=== PATIENT | male | born 1940 | race African-American/Black ===

== ENCOUNTER 2017-12-11 22:10 | Inpatient (IN) ==
[2017-12-11] MEDS ORDERED: methylPREDNISolone SOD SUC 125 MG/2 ML VIAL IV STA (22:53)
[2017-12-11] MEDS ORDERED: ALBUTEROL/IPRATROPIUM 3 ML NEB RESP TX STA (22:53)
[2017-12-11] MEDS ORDERED: methylPREDNISolone SOD SUC 125 MG/2 ML VIAL ONE (23:21)
[2017-12-11 23:49] LABS: Basophils # 0.1 10*3/uL (0.0-0.2); Basophils % 0.5 % (0.0-0.8); Eosinophils # 0.1 10*3/uL (0.0-0.87); Eosinophils % 0.9 % (0.00-10.9); Hematocrit 34.6 VOL% (42.0-52.0); Hemoglobin 11.4 GM/DL (14.0-18.0); Immature Granulocytes % 0.5 %; Immature Granulocytes Absolute 0.05 #; Lymphocytes # 1.7 10*3/uL (1.4-4.0); Lymphocytes % 18.5 % (21.2-54.2); Mean Corpuscular HGB Conc 32.9 GM/DL (32-36); Mean Corpuscular Hemoglobin 28 PG (27-34); Mean Corpuscular Volume 86.1 FL (87-102); Mean Platelet Volume 10.1 FL (9.6-12.0); Monocytes # 0.4 10*3/uL (0.11-0.8); Monocytes % 4.8 % (1.7-12.7); Neutrophils # 6.8 10*3/uL (1.4-7.4); Neutrophils % 74.8 % (38.7-73.9); Platelet Count 195 T/CUMM (130-400); Red Blood Count 4.02 MC/CUMM (3.8-5.5); Red Cell Distribution Width 14.6 % (9.3-17.3); White Blood Count 9.1 T/CUMM (4-12)
[2017-12-12 00:46] LABS: Alanine Aminotransferase 48 U/L (16-61); Albumin 3.4 G/DL (3.4-5.0); Alkaline Phosphatase 133 U/L (45-117); Aspartate Amino Transferase 62 U/L (0-37); Blood Urea Nitrogen 18 MG/DL (7-18); Calcium 8.1 MG/DL (8.5-10.1); Glucose 137 MG/DL (74-106); Magnesium 1.9 MG/DL (1.8-2.4); Osmolality,Calculated 286.1 MOS/KG (273-304); Potassium 4.2 MMOL/L (3.5-5.1); Sodium 142 MMOL/L (136-145); Total Protein 7.2 G/DL (6.4-8.3)
[2017-12-12 00:47] LABS: Troponin I Only 0.316 NG/ML (0.00-0.045)
[2017-12-12] MEDS ORDERED: FUROSEMIDE 20 MG/2 ML VIAL IV STA (01:24)
[2017-12-12] MEDS ORDERED: FUROSEMIDE 20 MG/2 ML VIAL ONE (02:19)
[2017-12-12] MEDS ORDERED: MAGNESIUM SULF RIDER 2 GM in PREMIX 1 EACH IV PRN (05:12)
[2017-12-12] MEDS ORDERED: hydrALAZINE 20 MG/1 ML VIAL IV PRN (05:12)
[2017-12-12] MEDS ORDERED: ONDANSETRON 4 MG/2 ML VIAL IV PRN (05:12)
[2017-12-12] MEDS ORDERED: MAGNESIUM SULF RIDER 4 GM in PREMIX 1 EACH IV PRN (05:12)
[2017-12-12] MEDS ORDERED: LEVOFLOXACIN INJ 500 MG in PREMIX 1 EACH IV ONE (05:30)
[2017-12-12] MEDS: ALBUTEROL/IPRATROPIUM 3 ML NEB RESP TX SCH ×3 (07:55→19:24)
[2017-12-12 08:05] LABS: Ferritin 437.4 ng/ml (26-388)
[2017-12-12 08:21] LABS: % Iron Saturation 13.5 % (18-50)
[2017-12-12] MEDS ORDERED: POTASSIUM CHLORIDE 20 MEQ TABLET PO SCH (09:00)
[2017-12-12] MEDS: FUROSEMIDE 40 MG/4 ML VIAL IV SCH ×2 (09:18→17:16)
[2017-12-12] MEDS: PANTOPRAZOLE 40 MG TABLET PO SCH (09:20)
[2017-12-12] MEDS ORDERED: ZALEPLON 5 MG CAPSULE PO PRN (13:49)
[2017-12-12] MEDS ORDERED: guaiFENesin/DM ER 600-30 MG TABLET PO PRN (13:49)
[2017-12-12] MEDS ORDERED: BISACODYL 5 MG TABLET PO PRN (13:49)
[2017-12-12] MEDS: ASPIRIN EC 81 MG TABLET PO SCH (13:59)
[2017-12-12] MEDS: ENOXAPARIN 40 MG/0.4 ML SYRINGE SUBCUT SCH (14:00)
[2017-12-12 14:42] LABS: Apearance,Urine CLEAR (Clear); Bilirubin,Urine Negative (Negative); Blood, Urine Negative (Negative); Glucose,Urine (UA) Negative (Negative); Ketones,Urine Negative (Negative); Nitrite,Urine Negative (Negative); Protein,Urine Negative; RBC,Urine <1 /HPF (0-4); Squamous Epithelial Cell,Urine Occasional /HPF (0-10); Urine Color Straw (Yellow); Urine Specific Gravity 1.006 (1.001-1.035); Urine Urobilinogen < 2.0 EU/DL (0.2-1.0); WBC,Urine <1 /HPF (0-6)
[2017-12-12] MEDS ORDERED: TERAZOSIN 5 MG CAPSULE PO SCH (21:00)
[2017-12-12] MEDS ORDERED: ATORVASTATIN 40 MG TABLET PO SCH (21:00)
[2017-12-13] MEDS: ALBUTEROL/IPRATROPIUM 3 ML NEB RESP TX SCH ×3 (00:10→12:45)
[2017-12-13 05:36] LABS: Calcium 8.3 MG/DL (8.5-10.1); Magnesium 2.1 MG/DL (1.8-2.4); Osmolality,Calculated 288.3 MOS/KG (273-304); Potassium 3.9 MMOL/L (3.5-5.1)
[2017-12-13 06:06] LABS: Risk Ratio 5.88; VLDL CHOLESTEROL 22.4 MG/DL
[2017-12-13 06:51] LABS: Hemoglobin 9.7 GM/DL (14.0-18.0); Immature Granulocytes % 0.4 %; Immature Granulocytes Absolute 0.03 #; Lymphocytes # 1.4 10*3/uL (1.4-4.0); Lymphocytes % 17.1 % (21.2-54.2); Mean Corpuscular HGB Conc 33.4 GM/DL (32-36); Mean Corpuscular Hemoglobin 28 PG (27-34); Mean Platelet Volume 10.7 FL (9.6-12.0); Monocytes # 0.6 10*3/uL (0.11-0.8); Monocytes % 7.7 % (1.7-12.7); Neutrophils % 74.8 % (38.7-73.9); Platelet Count 202 T/CUMM (130-400); Red Blood Count 3.41 MC/CUMM (3.8-5.5); Red Cell Distribution Width 14.6 % (9.3-17.3); White Blood Count 8.1 T/CUMM (4-12)
[2017-12-13] MEDS ORDERED: POTASSIUM CHLORIDE 20 MEQ TABLET PO SCH (09:00)
[2017-12-13] MEDS ORDERED: METOPROLOL TARTRATE 25 MG TABLET PO SCH (09:00)
[2017-12-13 09:18] LABS: Troponin I Only 0.344 NG/ML (0.00-0.045)
[2017-12-13 09:32] LABS: Albumin (SPE) 3.8 G/DL (3.2-5.3); Albumin (SPE) Rel % 53.4 %; Alpha 1 (SPE) 0.3 G/DL (0.1-0.4); Alpha 2 (SPE) 0.8 G/DL (0.4-1.0); Alpha 2 (SPE) Rel % 11.5 %; Beta (SPE) 0.9 G/DL (0.5-1.1); Beta (SPE) Rel % 12.3 %; Gamma (SPE) 1.3 G/DL (0.7-1.7); Gamma (SPE) Rel % 18.8 %; Total Protein (Chem) 7.1 G/DL (6.4-8.3)
[2017-12-13] MEDS: FUROSEMIDE 40 MG/4 ML VIAL IV SCH (10:30)
[2017-12-13] MEDS: PANTOPRAZOLE 40 MG TABLET PO SCH (11:05)
[2017-12-13] MEDS: ASPIRIN EC 81 MG TABLET PO SCH (11:05)
[2017-12-13] MEDS: ENOXAPARIN 40 MG/0.4 ML SYRINGE SUBCUT SCH (11:35)
[2017-12-13 14:56] VITALS: BP 180/76
[2017-12-14] MEDS ORDERED: METOPROLOL SUCCINATE XL 25 MG TABLET PO SCH (09:00)
== END 2017-12-13 19:23 | disposition home health service (06) | DRG 308 ==
LOC: N.ED 22:10 → N.EDINP 12-12 01:50 → SUATTDRO 12-12 01:50 → N.CC 12-12 03:02
PROVIDERS: ADMIT Internal Medicine Cardiovascular Disease; ATTEND Internal Medicine Cardiovascular Disease

== ENCOUNTER 2018-09-27 10:27 | Inpatient (IN) ==
[2018-09-27] MEDS ORDERED: ONDANSETRON 4 MG/2 ML VIAL IV PRN (12:28)
[2018-09-27] MEDS ORDERED: GLUCAGON 1 MG VIAL IM PRN (12:28)
[2018-09-27] MEDS ORDERED: DEXTROSE 50% 25 GM/50 ML VIAL IV PRN (12:28)
[2018-09-27] MEDS ORDERED: ACETAMINOPHEN 325 MG TABLET PO PRN (12:28)
[2018-09-27] MEDS ORDERED: ALBUTEROL 2.5 MG/3 ML NEB RESP TX PRN (12:30)
[2018-09-27 13:17] LABS: Basophils % 0.3 % (0.0-0.8); Hematocrit 36.2 VOL% (42.0-52.0); Hemoglobin 11.7 GM/DL (14.0-18.0); Immature Granulocytes % 0.4 %; Immature Granulocytes Absolute 0.03 #; Lymphocytes # 1.7 10*3/uL (1.4-4.0); Lymphocytes % 21.6 % (21.2-54.2); Mean Corpuscular HGB Conc 32.3 GM/DL (32-36); Mean Corpuscular Hemoglobin 27 PG (27-34); Mean Corpuscular Volume 84.6 FL (87-102); Mean Platelet Volume 9.7 FL (9.6-12.0); Monocytes # 0.6 10*3/uL (0.11-0.8); Monocytes % 7.2 % (1.7-12.7); Neutrophils # 5.5 10*3/uL (1.4-7.4); Neutrophils % 70.5 % (38.7-73.9); Platelet Count 193 T/CUMM (130-400); Red Blood Count 4.28 MC/CUMM (3.8-5.5); Red Cell Distribution Width 14.9 % (9.3-17.3); White Blood Count 7.8 T/CUMM (4-12)
[2018-09-27 13:36] LABS: Albumin 3.3 G/DL (3.4-5.0); Bilirubin,Total 0.5 MG/DL (0.2-1.0); Calcium 8.8 MG/DL (8.5-10.1); Osmolality,Calculated 285.1 MOS/KG (273-304); Potassium 3.8 MMOL/L (3.5-5.1); Total Protein 8.6 G/DL (6.4-8.3)
[2018-09-27] MEDS: LEVOFLOXACIN INJ 750 MG in PREMIX 1 EACH IV SCH (14:24)
[2018-09-27] MEDS: methylPREDNISolone SOD SUC 40 MG/1 ML VIAL IV SCH (14:28)
[2018-09-27] MEDS: ALBUTEROL/IPRATROPIUM 3 ML NEB RESP TX SCH ×3 (15:03→23:17)
[2018-09-27] MEDS: INSULIN LISPRO 100 UNIT/ML SUBCUT SCH ×2 (16:09→22:02)
[2018-09-27] MEDS: ATORVASTATIN 40 MG TABLET PO SCH (22:01)
[2018-09-27] MEDS: TERAZOSIN 10 MG CAPSULE PO SCH (22:01)
[2018-09-27] MEDS: DOCUSATE SODIUM 100 MG CAPSULE PO SCH (22:01)
[2018-09-28] MEDS ORDERED: guaiFENesin 200 MG/10 ML UDCUP PO PRN (00:15)
[2018-09-28] MEDS: traMADol 50 MG TABLET PO PRN ×2 (00:35→09:06)
[2018-09-28] MEDS: methylPREDNISolone SOD SUC 40 MG/1 ML VIAL IV SCH ×3 (00:37→21:32)
[2018-09-28] MEDS: ALBUTEROL/IPRATROPIUM 3 ML NEB RESP TX SCH ×7 (02:45→23:25)
[2018-09-28 05:50] LABS: Hematocrit 34.7 VOL% (42.0-52.0); Hemoglobin 11.3 GM/DL (14.0-18.0); Immature Granulocytes % 0.5 %; Immature Granulocytes Absolute 0.03 #; Lymphocytes # 0.7 10*3/uL (1.4-4.0); Lymphocytes % 12.5 % (21.2-54.2); Mean Corpuscular HGB Conc 32.6 GM/DL (32-36); Mean Corpuscular Hemoglobin 27 PG (27-34); Mean Corpuscular Volume 83.8 FL (87-102); Mean Platelet Volume 10.2 FL (9.6-12.0); Monocytes # 0.2 10*3/uL (0.11-0.8); Monocytes % 2.8 % (1.7-12.7); Neutrophils # 4.9 10*3/uL (1.4-7.4); Neutrophils % 84.2 % (38.7-73.9); Platelet Count 175 T/CUMM (130-400); Red Blood Count 4.14 MC/CUMM (3.8-5.5); Red Cell Distribution Width 14.6 % (9.3-17.3); White Blood Count 5.8 T/CUMM (4-12)
[2018-09-28 06:11] LABS: Albumin 3.3 G/DL (3.4-5.0); Bilirubin,Total 0.7 MG/DL (0.2-1.0); Calcium 8.5 MG/DL (8.5-10.1); Osmolality,Calculated 286.5 MOS/KG (273-304); Potassium 4.3 MMOL/L (3.5-5.1); Total Protein 8.1 G/DL (6.4-8.3)
[2018-09-28] MEDS ORDERED: NON-FORMULARY MEDICATION (Umeclidinium Brm/Vilanterol Tr [Anoro Ellipta] 1 PUFF) INH SCH (09:00)
[2018-09-28] MEDS: DOCUSATE SODIUM 100 MG CAPSULE PO SCH ×2 (09:03→21:32)
[2018-09-28] MEDS: POTASSIUM CHLORIDE 20 MEQ TABLET PO SCH (09:03)
[2018-09-28] MEDS: PANTOPRAZOLE 40 MG TABLET PO SCH (09:04)
[2018-09-28] MEDS: ASPIRIN EC 81 MG TABLET PO SCH (09:04)
[2018-09-28] MEDS: INSULIN LISPRO 100 UNIT/ML SUBCUT SCH ×4 (09:04→21:33)
[2018-09-28] MEDS: glyBURIDE 2.5 MG TABLET PO SCH (09:04)
[2018-09-28] MEDS ORDERED: hydrALAZINE 20 MG/1 ML VIAL IV PRN (09:19)
[2018-09-28] MEDS: LEVOFLOXACIN INJ 750 MG in PREMIX 1 EACH IV SCH (11:02)
[2018-09-28] MEDS: amLODIPine 5 MG TABLET PO SCH (11:02)
[2018-09-28] MEDS ORDERED: ALUMINUM/MAGNES/SIMETH MAX STR 30 ML UDCUP PO ONE (15:00)
[2018-09-28 15:10] LABS: Apearance,Urine Slightly Hazy (Clear); Bilirubin,Urine Negative (Negative); Blood, Urine Moderate mg/dL (Negative); Glucose,Urine (UA) Negative (Negative); Ketones,Urine Negative (Negative); Nitrite,Urine Negative (Negative); Protein,Urine 100 MG/DL; RBC,Urine <1 /HPF (0-4); Squamous Epithelial Cell,Urine Occasional /HPF (0-10); Urine Color Yellow (Yellow); Urine Specific Gravity 1.014 (1.001-1.035); Urine Urobilinogen < 2.0 EU/DL (0.2-1.0); WBC,Urine 3 /HPF (0-6)
[2018-09-28] MEDS ORDERED: BISACODYL 10 MG SUPP RECTAL PRN (21:00)
[2018-09-28] MEDS: TERAZOSIN 10 MG CAPSULE PO SCH (21:32)
[2018-09-28] MEDS: ATORVASTATIN 40 MG TABLET PO SCH (21:32)
[2018-09-28] MEDS: METOPROLOL TARTRATE 25 MG TABLET PO SCH (21:32)
[2018-09-29] MEDS: ALBUTEROL/IPRATROPIUM 3 ML NEB RESP TX SCH ×3 (03:20→11:22)
[2018-09-29 05:30] LABS: Hemoglobin 10.9 GM/DL (14.0-18.0); Immature Granulocytes % 0.4 %; Immature Granulocytes Absolute 0.03 #; Lymphocytes # 0.9 10*3/uL (1.4-4.0); Lymphocytes % 12.9 % (21.2-54.2); Mean Corpuscular Hemoglobin 27 PG (27-34); Mean Corpuscular Volume 82.3 FL (87-102); Mean Platelet Volume 10.3 FL (9.6-12.0); Monocytes # 0.4 10*3/uL (0.11-0.8); Monocytes % 5.8 % (1.7-12.7); Neutrophils # 5.8 10*3/uL (1.4-7.4); Neutrophils % 80.9 % (38.7-73.9); Platelet Count 175 T/CUMM (130-400); Red Blood Count 4.01 MC/CUMM (3.8-5.5); Red Cell Distribution Width 14.6 % (9.3-17.3); White Blood Count 7.2 T/CUMM (4-12)
[2018-09-29 06:07] LABS: Calcium 8.1 MG/DL (8.5-10.1); Osmolality,Calculated 285.5 MOS/KG (273-304); Potassium 4.3 MMOL/L (3.5-5.1)
[2018-09-29] MEDS: INSULIN LISPRO 100 UNIT/ML SUBCUT SCH ×2 (08:22→12:44)
[2018-09-29] MEDS ORDERED: POLYETHYLENE GLYCOL POWDER 17 GM PACK PO PRN (09:00)
[2018-09-29] MEDS: glyBURIDE 2.5 MG TABLET PO SCH (10:15)
[2018-09-29] MEDS: PANTOPRAZOLE 40 MG TABLET PO SCH (10:16)
[2018-09-29] MEDS: METOPROLOL TARTRATE 25 MG TABLET PO SCH (10:16)
[2018-09-29] MEDS: DOCUSATE SODIUM 100 MG CAPSULE PO SCH (10:16)
[2018-09-29] MEDS: ASPIRIN EC 81 MG TABLET PO SCH (10:16)
[2018-09-29] MEDS: POTASSIUM CHLORIDE 20 MEQ TABLET PO SCH (10:17)
[2018-09-29] MEDS: methylPREDNISolone SOD SUC 40 MG/1 ML VIAL IV SCH (10:17)
[2018-09-29] MEDS: amLODIPine 5 MG TABLET PO SCH (10:17)
[2018-09-29] MEDS: LEVOFLOXACIN INJ 750 MG in PREMIX 1 EACH IV SCH (10:18)
[2018-09-29 11:49] VITALS: BP 179/101
== END 2018-09-29 15:13 | disposition home or self-care (01) | DRG 190 ==
LOC: N.2E 10:37
PROVIDERS: ADMIT Family Medicine; ATTEND Family Medicine

== ENCOUNTER 2020-01-17 08:42 | Inpatient (IN) ==
[2020-01-17] MEDS ORDERED: NITROGLYCERIN SL 0.4 MG TABLET SL ONE (09:18)
[2020-01-17] MEDS ORDERED: ASPIRIN 325 MG TABLET ONE (09:18)
[2020-01-17] MEDS: NITROGLYCERIN SL 0.4 MG TABLET SL PRN ×3 (09:20→09:30)
[2020-01-17] MEDS ORDERED: ENOXAPARIN 100 MG/ML SYRINGE SUBCUT STA (09:26)
[2020-01-17] MEDS ORDERED: ASPIRIN 325 MG TABLET PO STA (09:26)
[2020-01-17 09:33] LABS: Basophils % 0.3 % (0.0-0.8); Eosinophils % 0.6 % (0.00-10.9); Hematocrit 31.8 VOL% (42.0-52.0); Hemoglobin 10.1 GM/DL (14.0-18.0); Immature Granulocytes % 0.2 %; Immature Granulocytes Absolute 0.01 #; Lymphocytes % 29.5 % (21.2-54.2); Mean Corpuscular HGB Conc 31.8 GM/DL (32-36); Mean Corpuscular Volume 79.5 FL (87-102); Monocytes % 6.4 % (1.7-12.7); Platelet Count 206 T/CUMM (130-400); Red Cell Distribution Width 17.4 % (9.3-17.3); White Blood Count 6.6 T/CUMM (4-12)
[2020-01-17 09:48] LABS: Albumin 3.2 G/DL (3.4-5.0); Bilirubin,Total 0.6 MG/DL (0.2-1.0); Calcium 9.5 MG/DL (8.5-10.1); Osmolality,Calculated 276.7 MOS/KG (273-304); Total Protein 8.2 G/DL (6.4-8.3)
[2020-01-17] MEDS ORDERED: ZALEPLON 5 MG CAPSULE PO PRN (10:22)
[2020-01-17] MEDS ORDERED: GLUCAGON 1 MG VIAL IM PRN (10:22)
[2020-01-17] MEDS ORDERED: DEXTROSE 50% 25 GM/50 ML VIAL IV PRN (10:22)
[2020-01-17] MEDS ORDERED: METOPROLOL TARTRATE 5 MG/5 ML VIAL IV ONE (10:26)
[2020-01-17] MEDS ORDERED: CLOPIDOGREL 300 MG TABLET PO STA (10:28)
[2020-01-17] MEDS: SODIUM CHLORIDE 0.45% 1,000 ML IV SCH (10:40)
[2020-01-17] MEDS: ONDANSETRON 4 MG/2 ML VIAL IV PRN (10:43)
[2020-01-17] MEDS: PANTOPRAZOLE 40 MG TABLET PO SCH (10:45)
[2020-01-17] MEDS: ENOXAPARIN 100 MG/ML SYRINGE SUBCUT SCH ×2 (10:50→21:32)
[2020-01-17] MEDS: ISOSORBIDE MONONITRATE 60 MG TABLET PO SCH (12:14)
[2020-01-17] MEDS: ALBUTEROL 2.5 MG/3 ML NEB RESP TX SCH ×2 (13:39→19:50)
[2020-01-17] MEDS: INSULIN REGULAR 100 UNIT/ML SUBCUT SCH ×3 (13:50→21:33)
[2020-01-17] MEDS: ACETAMINOPHEN 325 MG TABLET PO PRN (17:39)
[2020-01-17] MEDS ORDERED: MORPHINE 4 MG/1 ML VIAL ONE (18:58)
[2020-01-17] MEDS: MORPHINE 4 MG/1 ML VIAL IV PRN (19:08)
[2020-01-17] MEDS ORDERED: ATORVASTATIN 40 MG TABLET PO SCH (21:00)
[2020-01-17] MEDS: DOCUSATE SODIUM 100 MG CAPSULE PO SCH (21:31)
[2020-01-17] MEDS: METOPROLOL TARTRATE 50 MG TABLET PO SCH (21:32)
[2020-01-17] MEDS: TERAZOSIN 10 MG CAPSULE PO SCH (21:32)
[2020-01-18] MEDS: ALBUTEROL 2.5 MG/3 ML NEB RESP TX SCH ×4 (01:35→19:19)
[2020-01-18 04:33] LABS: Basophils % 0.6 % (0.0-0.8); Eosinophils # 0.1 10*3/uL (0.0-0.87); Eosinophils % 1.4 % (0.00-10.9); Hematocrit 27.5 VOL% (42.0-52.0); Hemoglobin 8.8 GM/DL (14.0-18.0); Immature Granulocytes % 0.2 %; Immature Granulocytes Absolute 0.01 #; Lymphocytes # 1.1 10*3/uL (1.4-4.0); Lymphocytes % 22.7 % (21.2-54.2); Mean Platelet Volume 9.7 FL (9.6-12.0); Monocytes % 5.6 % (1.7-12.7); Neutrophils % 69.5 % (38.7-73.9); Platelet Count 193 T/CUMM (130-400); Red Blood Count 3.48 MC/CUMM (3.8-5.5); Red Cell Distribution Width 17.5 % (9.3-17.3)
[2020-01-18 04:55] LABS: Calcium 8.4 MG/DL (8.5-10.1); Osmolality,Calculated 278.5 MOS/KG (273-304)
[2020-01-18] MEDS: SODIUM CHLORIDE 0.45% 1,000 ML IV SCH ×2 (05:40→22:47)
[2020-01-18] MEDS ORDERED: MAGNESIUM SULF RIDER 2 GM in PREMIX 1 EACH IV PRN (07:24)
[2020-01-18] MEDS ORDERED: DIAZEPAM 5 MG TABLET PO ONE (07:24)
[2020-01-18] MEDS ORDERED: POTASSIUM CHLORIDE RIDER 10 MEQ in PREMIX 1 EACH IV PRN (07:24)
[2020-01-18] MEDS ORDERED: diphenhydrAMINE CAP 25 MG CAPSULE PO ONE (07:24)
[2020-01-18] MEDS: ISOSORBIDE MONONITRATE 60 MG TABLET PO SCH (08:55)
[2020-01-18] MEDS: DOCUSATE SODIUM 100 MG CAPSULE PO SCH ×2 (08:55→20:50)
[2020-01-18] MEDS: ACETAMINOPHEN 325 MG TABLET PO PRN (08:55)
[2020-01-18] MEDS: PANTOPRAZOLE 40 MG TABLET PO SCH (08:55)
[2020-01-18] MEDS: METOPROLOL TARTRATE 50 MG TABLET PO SCH ×3 (08:56→20:53)
[2020-01-18] MEDS: ASPIRIN EC 81 MG TABLET PO SCH (08:56)
[2020-01-18] MEDS ORDERED: CLOPIDOGREL 75 MG TABLET PO SCH (09:00)
[2020-01-18] MEDS: INSULIN REGULAR 100 UNIT/ML SUBCUT SCH ×4 (09:33→20:50)
[2020-01-18] MEDS ORDERED: NITROGLYCERIN DRIP 50 MG/250 ML BOTTLE IV ONE (10:48)
[2020-01-18] MEDS ORDERED: HEPARIN/NACL 0.9% 2 UNITS/ML 1,000 ML IV ONE (10:48)
[2020-01-18] MEDS ORDERED: LIDOCAINE 1% 20 ML VIAL ONE (10:48)
[2020-01-18] MEDS ORDERED: VERAPAMIL 5 MG/2 ML VIAL ONE (10:48)
[2020-01-18] MEDS: ENOXAPARIN 100 MG/ML SYRINGE SUBCUT SCH (11:00)
[2020-01-18] MEDS ORDERED: fentaNYL 100 MCG/2 ML VIAL ONE (11:32)
[2020-01-18] MEDS ORDERED: MIDAZOLAM 2 MG/2 ML VIAL ONE (11:32)
[2020-01-18] MEDS ORDERED: NITROGLYCERIN 2% OINT 1 INCH/GM PACK TOP SCH (19:00)
[2020-01-18] MEDS: TERAZOSIN 10 MG CAPSULE PO SCH (20:49)
[2020-01-18] MEDS: ATORVASTATIN 80 MG TABLET PO SCH (20:49)
[2020-01-18] MEDS: RANOLAZINE 500 MG TABLET PO SCH (20:49)
[2020-01-19] MEDS: ALBUTEROL 2.5 MG/3 ML NEB RESP TX SCH ×4 (00:21→19:25)
[2020-01-19 05:10] LABS: Basophils % 0.5 % (0.0-0.8); Eosinophils # 0.1 10*3/uL (0.0-0.87); Eosinophils % 1.1 % (0.00-10.9); Hematocrit 25.1 VOL% (42.0-52.0); Hemoglobin 7.8 GM/DL (14.0-18.0); Immature Granulocytes % 0.4 %; Immature Granulocytes Absolute 0.02 #; Mean Corpuscular HGB Conc 31.1 GM/DL (32-36); Mean Corpuscular Volume 79.9 FL (87-102); Monocytes % 5.8 % (1.7-12.7); Neutrophils % 74.2 % (38.7-73.9); Platelet Count 164 T/CUMM (130-400); Red Blood Count 3.14 MC/CUMM (3.8-5.5); Red Cell Distribution Width 17.2 % (9.3-17.3); White Blood Count 5.7 T/CUMM (4-12)
[2020-01-19] MEDS: ENOXAPARIN 40 MG/0.4 ML SYRINGE SUBCUT SCH (05:37)
[2020-01-19] MEDS: SODIUM CHLORIDE 0.45% 1,000 ML IV SCH ×2 (06:05→18:12)
[2020-01-19 06:59] LABS: Calcium 7.8 MG/DL (8.5-10.1); Osmolality,Calculated 275.8 MOS/KG (273-304)
[2020-01-19] MEDS: RANOLAZINE 500 MG TABLET PO SCH ×2 (09:01→21:33)
[2020-01-19] MEDS: DOCUSATE SODIUM 100 MG CAPSULE PO SCH ×2 (09:02→21:33)
[2020-01-19] MEDS: ASPIRIN EC 81 MG TABLET PO SCH (09:02)
[2020-01-19] MEDS: ISOSORBIDE MONONITRATE 30 MG TABLET PO SCH (09:02)
[2020-01-19] MEDS: PANTOPRAZOLE 40 MG TABLET PO SCH ×2 (09:03→21:33)
[2020-01-19] MEDS: METOPROLOL TARTRATE 50 MG TABLET PO SCH ×2 (09:09→21:33)
[2020-01-19] MEDS: INSULIN REGULAR 100 UNIT/ML SUBCUT SCH ×4 (09:11→21:33)
[2020-01-19] MEDS: POLYETHYLENE GLYCOL POWDER 17 GM PACK PO SCH (10:21)
[2020-01-19 10:29] LABS: CKMB % 3.8 %
[2020-01-19 10:30] LABS: Troponin I 58.9 NG/ML (0.00-0.045)
[2020-01-19] MEDS: FERROUS SULFATE 325 MG TABLET PO SCH ×2 (15:13→21:32)
[2020-01-19] MEDS: ATORVASTATIN 80 MG TABLET PO SCH (21:33)
[2020-01-20] MEDS: ALBUTEROL 2.5 MG/3 ML NEB RESP TX SCH ×4 (00:41→19:41)
[2020-01-20] MEDS: ENOXAPARIN 40 MG/0.4 ML SYRINGE SUBCUT SCH (05:31)
[2020-01-20 05:50] LABS: % Iron Saturation 19.9 % (18-50); Ferritin 366.2 ng/ml (26-388)
[2020-01-20] MEDS: SODIUM CHLORIDE 0.45% 1,000 ML IV SCH ×2 (08:07→20:56)
[2020-01-20] MEDS: INSULIN REGULAR 100 UNIT/ML SUBCUT SCH ×4 (08:08→20:53)
[2020-01-20] MEDS ORDERED: BISACODYL 5 MG TABLET PO ONE (09:02)
[2020-01-20] MEDS: POLYETHYLENE GLYCOL POWDER 17 GM PACK PO SCH (09:04)
[2020-01-20] MEDS: RANOLAZINE 500 MG TABLET PO SCH ×2 (09:04→20:52)
[2020-01-20] MEDS: PANTOPRAZOLE 40 MG TABLET PO SCH ×2 (09:05→20:52)
[2020-01-20] MEDS: FERROUS SULFATE 325 MG TABLET PO SCH ×3 (09:05→20:52)
[2020-01-20] MEDS: ASPIRIN EC 81 MG TABLET PO SCH (09:05)
[2020-01-20] MEDS: ISOSORBIDE MONONITRATE 30 MG TABLET PO SCH (09:05)
[2020-01-20] MEDS: METOPROLOL TARTRATE 50 MG TABLET PO SCH ×2 (09:05→20:52)
[2020-01-20] MEDS: DOCUSATE SODIUM 100 MG CAPSULE PO SCH ×2 (09:06→20:52)
[2020-01-20 09:38] LABS: Basophils % 0.2 % (0.0-0.8); Eosinophils # 0.1 10*3/uL (0.0-0.87); Eosinophils % 1.7 % (0.00-10.9); Hemoglobin 8.3 GM/DL (14.0-18.0); Immature Granulocytes % 0.5 %; Immature Granulocytes Absolute 0.02 #; Lymphocytes # 1.3 10*3/uL (1.4-4.0); Mean Corpuscular HGB Conc 31.9 GM/DL (32-36); Mean Corpuscular Volume 79.8 FL (87-102); Mean Platelet Volume 9.5 FL (9.6-12.0); Monocytes % 7.5 % (1.7-12.7); Neutrophils % 58.1 % (38.7-73.9); Platelet Count 172 T/CUMM (130-400); Red Blood Count 3.26 MC/CUMM (3.8-5.5); Red Cell Distribution Width 17.2 % (9.3-17.3); White Blood Count 4.2 T/CUMM (4-12)
[2020-01-20 09:46] LABS: Calcium 7.9 MG/DL (8.5-10.1); Osmolality,Calculated 270.4 MOS/KG (273-304)
[2020-01-20] MEDS: MAGNESIUM OXIDE 400 MG TABLET PO SCH ×2 (10:01→20:51)
[2020-01-20] MEDS: ATORVASTATIN 80 MG TABLET PO SCH (20:52)
[2020-01-21] MEDS: ALBUTEROL 2.5 MG/3 ML NEB RESP TX SCH ×4 (01:56→19:04)
[2020-01-21 04:44] LABS: Basophils % 0.5 % (0.0-0.8); Hematocrit 25.1 VOL% (42.0-52.0); Immature Granulocytes % 0.5 %; Immature Granulocytes Absolute 0.02 #; Lymphocytes % 26.1 % (21.2-54.2); Mean Corpuscular HGB Conc 31.9 GM/DL (32-36); Mean Corpuscular Volume 78.7 FL (87-102); Mean Platelet Volume 8.8 FL (9.6-12.0); Monocytes % 6.8 % (1.7-12.7); Neutrophils % 65.1 % (38.7-73.9); Platelet Count 161 T/CUMM (130-400); Red Blood Count 3.19 MC/CUMM (3.8-5.5)
[2020-01-21 05:06] LABS: Calcium 8.3 MG/DL (8.5-10.1); Osmolality,Calculated 273.1 MOS/KG (273-304)
[2020-01-21] MEDS: ENOXAPARIN 40 MG/0.4 ML SYRINGE SUBCUT SCH (06:06)
[2020-01-21] MEDS: INSULIN REGULAR 100 UNIT/ML SUBCUT SCH ×4 (09:15→20:03)
[2020-01-21] MEDS: ISOSORBIDE MONONITRATE 30 MG TABLET PO SCH (09:18)
[2020-01-21] MEDS: METOPROLOL TARTRATE 50 MG TABLET PO SCH ×2 (09:18→20:56)
[2020-01-21] MEDS: DOCUSATE SODIUM 100 MG CAPSULE PO SCH ×2 (09:18→20:53)
[2020-01-21] MEDS: FERROUS SULFATE 325 MG TABLET PO SCH ×3 (09:18→20:53)
[2020-01-21] MEDS: ASPIRIN EC 81 MG TABLET PO SCH (09:18)
[2020-01-21] MEDS: PANTOPRAZOLE 40 MG TABLET PO SCH ×2 (09:18→20:55)
[2020-01-21] MEDS: MAGNESIUM OXIDE 400 MG TABLET PO SCH ×2 (09:18→20:55)
[2020-01-21] MEDS: RANOLAZINE 500 MG TABLET PO SCH ×2 (09:18→20:54)
[2020-01-21] MEDS: POLYETHYLENE GLYCOL POWDER 17 GM PACK PO SCH (09:19)
[2020-01-21] MEDS: NITROGLYCERIN SL 0.4 MG TABLET SL PRN ×4 (10:47→15:09)
[2020-01-21] MEDS: SODIUM CHLORIDE 0.45% 1,000 ML IV SCH ×2 (10:47→17:13)
[2020-01-21] MEDS: ONDANSETRON 4 MG/2 ML VIAL IV PRN ×2 (15:02→22:15)
[2020-01-21] MEDS: MORPHINE 4 MG/1 ML VIAL IV PRN ×3 (15:14→22:45)
[2020-01-21] MEDS ORDERED: NITROGLYCERIN DRIP 50 MG/250 ML BOTTLE IV PRN (15:17)
[2020-01-21] MEDS ORDERED: HEPARIN DRIP 25,000 UNITS/500 ML PREMIX IV SCH (15:30)
[2020-01-21] MEDS ORDERED: diphenhydrAMINE CAP 25 MG CAPSULE PO PRN (15:35)
[2020-01-21] MEDS ORDERED: MAGNESIUM HYDROXIDE SUSP 30 ML UDCUP PO PRN (15:35)
[2020-01-21] MEDS ORDERED: MAGNESIUM SULF RIDER 4 GM in PREMIX 1 EACH IV PRN (15:43)
[2020-01-21] MEDS ORDERED: MAGNESIUM SULF RIDER 2 GM in PREMIX 1 EACH IV PRN (15:43)
[2020-01-21 15:56] LABS: Hematocrit 24.4 VOL% (42.0-52.0); Hemoglobin 7.8 GM/DL (14.0-18.0)
[2020-01-21] MEDS ORDERED: ALBUTEROL 2.5 MG/3 ML NEB RESP TX PRN ×2 (16:12→16:36)
[2020-01-21] MEDS ORDERED: DEXTROSE 50% 25 GM/50 ML VIAL IV PRN (16:36)
[2020-01-21] MEDS ORDERED: SODIUM CHLORIDE 0.9% 1,000 ML IV SCH (16:36)
[2020-01-21] MEDS ORDERED: GLUCAGON 1 MG VIAL IM PRN (16:36)
[2020-01-21 17:17] LABS: Basophils % 0.2 % (0.0-0.8); Eosinophils % 0.9 % (0.00-10.9); Hematocrit 24.8 VOL% (42.0-52.0); Hemoglobin 8.1 GM/DL (14.0-18.0); Immature Granulocytes % 0.2 %; Immature Granulocytes Absolute 0.01 #; Mean Corpuscular HGB Conc 32.7 GM/DL (32-36); Mean Platelet Volume 9.8 FL (9.6-12.0); Monocytes % 5.9 % (1.7-12.7); Neutrophils % 70.8 % (38.7-73.9); Platelet Count 189 T/CUMM (130-400); Red Blood Count 3.18 MC/CUMM (3.8-5.5); Red Cell Distribution Width 17.2 % (9.3-17.3); White Blood Count 4.6 T/CUMM (4-12)
[2020-01-21 17:36] LABS: Albumin 2.7 G/DL (3.4-5.0); Bilirubin,Total 0.5 MG/DL (0.2-1.0); Calcium 8.9 MG/DL (8.5-10.1); Osmolality,Calculated 273.1 MOS/KG (273-304); Total Protein 7.5 G/DL (6.4-8.3)
[2020-01-21] MEDS: hydrALAZINE 25 MG TABLET PO SCH (20:53)
[2020-01-21] MEDS: ATORVASTATIN 80 MG TABLET PO SCH (20:54)
[2020-01-21] MEDS: CHLORHEXIDINE 0.12% ORAL RINSE 60 ML BOTTLE SWISH/SPIT SCH (20:58)
[2020-01-21] MEDS ORDERED: ATORVASTATIN 40 MG TABLET PO SCH (21:00)
[2020-01-21 22:11] LABS: Hemoglobin 8.6 GM/DL (14.0-18.0)
[2020-01-21] MEDS: CHLORHEXIDINE 4% SOLN 118 ML BOTTLE TOP SCH (22:38)
[2020-01-22] MEDS: SODIUM CHLORIDE 0.45% 1,000 ML IV SCH ×5 (00:19→12:15)
[2020-01-22] MEDS: ALBUTEROL 2.5 MG/3 ML NEB RESP TX SCH ×3 (00:44→13:42)
[2020-01-22] MEDS: CHLORHEXIDINE 4% SOLN 118 ML BOTTLE TOP SCH ×3 (01:25→08:32)
[2020-01-22] MEDS ORDERED: PAPAVERINE 60 MG/2 ML VIAL ONE (04:25)
[2020-01-22] MEDS ORDERED: VANCOMYCIN 1,000 MG VIAL ONE (04:25)
[2020-01-22] MEDS ORDERED: VANCOMYCIN 500 MG VIAL ONE (04:25)
[2020-01-22 04:33] LABS: ABG Oxygen Saturation 91.6 % (95-100); ABG PCO2 37.6 MM HG (35-48); ABG PH 7.364 (7.35-7.45); ABG PO2 67.2 MM HG (80-95); ABG TCO2 22.1 MMOL/L (23-27); Allen Test Positive
[2020-01-22 05:57] LABS: Hematocrit 24.3 VOL% (42.0-52.0)
[2020-01-22] MEDS ORDERED: DIAZEPAM 5 MG TABLET PO ONE (06:00)
[2020-01-22] MEDS ORDERED: FAMOTIDINE 20 MG TABLET PO ONE (06:00)
[2020-01-22] MEDS ORDERED: MIDAZOLAM 10 MG/2 ML VIAL ONE (06:02)
[2020-01-22] MEDS ORDERED: SUFentanil 250 MCG/5 ML AMP ONE (06:02)
[2020-01-22] MEDS: ONDANSETRON 4 MG/2 ML VIAL IV PRN (06:11)
[2020-01-22] MEDS ORDERED: CEFUROXIME INJ 1,500 MG in SODIUM CHLORIDE 0.9% 100 ML IV ONE (06:30)
[2020-01-22 07:45] LABS: ABG Base Excess -4.3 MMOL/L (-2.5-2.5); ABG HCO3 20.8 MMOL/L (20-26); ABG Oxygen Saturation 99.6 % (95-100); ABG PCO2 35.1 MM HG (35-48); ABG PH 7.372 (7.35-7.45); ABG TCO2 19.1 MMOL/L (23-27); Glucose Heart Surgery 108 MG/DL (74-106); Hematocrit Heart Surgery 24.4 PERCENT (42-52); Hemoglobin Heart Surgery 7.8 G/DL (14.0-18.0); Ionized Calcium Arterial 1.18 MMOL/L (1.21-1.46); PCO2 Patient Temp Arterial 35.1 MMHG; PH Patient Temp Arterial 7.372; Patient Temperature 37 CELCIUS; Potassium Heart/CVR 4.2 MMOL/L (3.5-5.1); Sodium Heart/CVR 134 MMOL/L (135-145)
[2020-01-22] MEDS ORDERED: glyBURIDE 2.5 MG TABLET PO SCH (08:00)
[2020-01-22] MEDS ORDERED: PHENYLEPHRINE DRIP 40 MG/250 ML PREMIX IV ONE (08:01)
[2020-01-22] MEDS ORDERED: NITROPRUSSIDE 50 MG/2 ML VIAL ONE (08:01)
[2020-01-22] MEDS ORDERED: ALBUMIN 5% 12.5 GM/250 ML VIAL IV ONE (08:02)
[2020-01-22] MEDS ORDERED: CALCIUM CHLORIDE 1,000 MG/10 ML SYRINGE IV ONE (08:02)
[2020-01-22] MEDS ORDERED: SODIUM BICARBONATE 50 MEQ/50 ML VIAL IV ONE ×2 (08:02→11:01)
[2020-01-22] MEDS ORDERED: POTASSIUM CHLORIDE RIDER 100 ML IV ONE (08:02)
[2020-01-22] MEDS ORDERED: AMINOCAPROIC ACID 5,000 MG/20 ML VIAL ONE (08:05)
[2020-01-22 08:21] LABS: Amorphous Crystals,Urine Few /HPF (Few); Apearance,Urine CLOUDY (Clear); Bilirubin,Urine Negative (Negative); Blood, Urine Large mg/dL (Negative); Glucose,Urine (UA) Negative (Negative); Ketones,Urine Negative (Negative); Mucus,Urine Occasional /LPF (Occasional); Nitrite,Urine Negative (Negative); Protein,Urine 100 MG/DL; RBC,Urine 326 /HPF (0-4); Squamous Epithelial Cell,Urine Few /HPF (0-10); Urine Color Amber (Yellow); Urine Specific Gravity 1.012 (1.001-1.035); Urine Urobilinogen < 2.0 EU/DL (0.2-1.0)
[2020-01-22] MEDS: INSULIN REGULAR 100 UNIT/ML SUBCUT SCH ×2 (08:30→17:31)
[2020-01-22] MEDS: FERROUS SULFATE 325 MG TABLET PO SCH (08:31)
[2020-01-22] MEDS: DOCUSATE SODIUM 100 MG CAPSULE PO SCH (08:31)
[2020-01-22] MEDS: hydrALAZINE 25 MG TABLET PO SCH (08:31)
[2020-01-22] MEDS: ASPIRIN EC 81 MG TABLET PO SCH (08:31)
[2020-01-22] MEDS: ISOSORBIDE MONONITRATE 30 MG TABLET PO SCH (08:32)
[2020-01-22] MEDS: MAGNESIUM OXIDE 400 MG TABLET PO SCH (08:32)
[2020-01-22] MEDS: METOPROLOL TARTRATE 50 MG TABLET PO SCH (08:32)
[2020-01-22] MEDS: CHLORHEXIDINE 0.12% ORAL RINSE 60 ML BOTTLE SWISH/SPIT SCH ×2 (08:32→20:38)
[2020-01-22] MEDS: PANTOPRAZOLE 40 MG TABLET PO SCH (08:32)
[2020-01-22] MEDS: POLYETHYLENE GLYCOL POWDER 17 GM PACK PO SCH (08:32)
[2020-01-22] MEDS: RANOLAZINE 500 MG TABLET PO SCH (08:33)
[2020-01-22] MEDS ORDERED: PHENYLEPHRINE DRIP 20 MG/250 ML PREMIX IV ONE (08:42)
[2020-01-22] MEDS ORDERED: HEPARIN/NACL 0.9% 2 UNITS/ML 500 ML IV ONE (08:42)
[2020-01-22] MEDS ORDERED: NITROGLYCERIN DRIP 50 MG/250 ML BOTTLE IV ONE (08:42)
[2020-01-22 08:48] LABS: Hematocrit Heart Surgery 20.7 PERCENT (42-52); Hemoglobin Heart Surgery 6.6 G/DL (14.0-18.0); PCO2 Patient Temp Venous 28.2 MM HG; PH Patient Temp Venous 7.44; Potassium Heart/CVR 4.5 MMOL/L (3.5-5.1); VBG Base Excess -4.3 MEQ/L (0-4); VBG HCO3 20.7 MEQ/L (24-28); VBG Oxygen Saturation 88.7 %; VBG PCO2 32.6 MMHG (41-51); VBG PH 7.396; VBG PO2 52.7 MMHG (17-40)
[2020-01-22] MEDS ORDERED: POTASSIUM CHLORIDE 20 MEQ TABLET PO SCH (09:00)
[2020-01-22] MEDS ORDERED: FUROSEMIDE 40 MG TABLET PO SCH (09:00)
[2020-01-22] MEDS ORDERED: OLMESARTAN 20 MG TABLET PO SCH (09:00)
[2020-01-22 09:22] LABS: Hematocrit Heart Surgery 24.6 PERCENT (42-52); Hemoglobin Heart Surgery 7.9 G/DL (14.0-18.0); PCO2 Patient Temp Venous 24.2 MM HG; PH Patient Temp Venous 7.534; Potassium Heart/CVR 4.4 MMOL/L (3.5-5.1); VBG Base Excess -1.5 MEQ/L (0-4); VBG HCO3 23.1 MEQ/L (24-28); VBG Oxygen Saturation 91.8 %; VBG PH 7.489; VBG PO2 53.8 MMHG (17-40)
[2020-01-22 09:51] LABS: Hematocrit Heart Surgery 20.3 PERCENT (42-52); Hemoglobin Heart Surgery 6.5 G/DL (14.0-18.0); PCO2 Patient Temp Venous 29.3 MM HG; PH Patient Temp Venous 7.493; PO2 Patient Temp Venous 41.2 MM HG; Potassium Heart/CVR 4.5 MMOL/L (3.5-5.1); VBG Base Excess -0.4 MEQ/L (0-4); VBG HCO3 23.9 MEQ/L (24-28); VBG Oxygen Saturation 81.9 %; VBG PCO2 29.3 MMHG (41-51); VBG PH 7.493; VBG PO2 41.2 MMHG (17-40)
[2020-01-22] MEDS ORDERED: THROMBIN TOPICAL (RECOMBINANT) 5,000 UNIT VIAL TOP ONE (10:29)
[2020-01-22 10:40] LABS: Hematocrit Heart Surgery 23.9 PERCENT (42-52); Hemoglobin Heart Surgery 7.7 G/DL (14.0-18.0); PCO2 Patient Temp Venous 33.5 MM HG; PH Patient Temp Venous 7.446; PO2 Patient Temp Venous 46.3 MM HG; Potassium Heart/CVR 4.1 MMOL/L (3.5-5.1); VBG Base Excess -0.6 MEQ/L (0-4); VBG HCO3 23.7 MEQ/L (24-28); VBG PCO2 33.5 MMHG (41-51); VBG PH 7.446; VBG PO2 46.3 MMHG (17-40)
[2020-01-22] MEDS ORDERED: PROTAMINE SULFATE 250 MG/25 ML VIAL IV ONE (11:01)
[2020-01-22] MEDS ORDERED: MAGNESIUM SULFATE 5 GM/10 ML VIAL IV ONE (11:01)
[2020-01-22] MEDS ORDERED: DEXTROSE 5% KCL 20 MEQ 20 MEQ/1,000 ML BAG IV ONE (11:01)
[2020-01-22] MEDS ORDERED: MANNITOL 100 GM/500 ML BAG IV ONE (11:01)
[2020-01-22] MEDS ORDERED: ALBUMIN 25% 25 GM/100 ML VIAL IV ONE (11:01)
[2020-01-22] MEDS ORDERED: LIDOCAINE 2% 5 ML VIAL ONE ×2 (11:01→12:47)
[2020-01-22] MEDS ORDERED: PROTAMINE SULFATE 50 MG/5 ML VIAL IV ONE (11:02)
[2020-01-22] MEDS ORDERED: HEPARIN 10,000 UNIT/10 ML VIAL ONE (11:02)
[2020-01-22] MEDS ORDERED: methylPREDNISolone SOD SUC 1,000 MG/8 ML VIAL ONE (11:02)
[2020-01-22] MEDS ORDERED: FUROSEMIDE 20 MG/2 ML VIAL ONE (11:02)
[2020-01-22 11:14] LABS: ABG Base Excess -1.6 MMOL/L (-2.5-2.5); ABG HCO3 21.2 MMOL/L (20-26); ABG Oxygen Saturation 98.7 % (95-100); ABG PCO2 27.9 MM HG (35-48); ABG PH 7.499 (7.35-7.45); ABG PO2 277.2 MM HG (80-95); ABG TCO2 22.1 MMOL/L (23-27); Glucose Heart Surgery 155 MG/DL (74-106); Hemoglobin Heart Surgery 7.3 G/DL (14.0-18.0); Ionized Calcium Arterial 1.17 MMOL/L (1.21-1.46); PCO2 Patient Temp Arterial 27.9 MMHG; PH Patient Temp Arterial 7.499; PO2 Patient Temp Arterial 277.2 MM HG; Patient Temperature 37 CELCIUS; Potassium Heart/CVR 3.8 MMOL/L (3.5-5.1); Sodium Heart/CVR 132 MMOL/L (135-145)
[2020-01-22] MEDS ORDERED: LACTATED RINGERS 1,000 ML IV ONE (12:47)
[2020-01-22] MEDS ORDERED: CALCIUM CHLORIDE 1,000 MG/10 ML VIAL IV ONE (12:47)
[2020-01-22] MEDS ORDERED: SEVOFLURANE 1 UNIT/15 MINUTE INH ONE (12:47)
[2020-01-22] MEDS ORDERED: SODIUM CHLORIDE 0.9% 200 ML IV ONE (12:47)
[2020-01-22] MEDS ORDERED: VECURONIUM 10 MG VIAL IV ONE (12:47)
[2020-01-22] MEDS ORDERED: SODIUM CHLORIDE 0.9% 250 ML IV ONE (12:47)
[2020-01-22] MEDS ORDERED: ETOMIDATE 40 MG/20 ML VIAL IV ONE (12:47)
[2020-01-22] MEDS ORDERED: SODIUM CHLORIDE 0.9% 1,000 ML IV ONE (12:47)
[2020-01-22] MEDS: LACTATED RINGERS 250 ML IV PRN ×4 (13:08→17:12)
[2020-01-22] MEDS ORDERED: ACETAMINOPHEN 650 MG SUPP RECTAL PRN (13:40)
[2020-01-22] MEDS ORDERED: MIDAZOLAM 10 MG/2 ML VIAL IV PRN (13:40)
[2020-01-22] MEDS ORDERED: PHENYLEPHRINE DRIP 40 MG/250 ML PREMIX IV PRN (13:40)
[2020-01-22] MEDS ORDERED: POTASSIUM CHLORIDE RIDER 10 MEQ in PREMIX 1 EACH IV PRN (13:40)
[2020-01-22] MEDS ORDERED: INSULIN REGULAR 100 UNIT/ML IV PRN (13:40)
[2020-01-22] MEDS ORDERED: ONDANSETRON 4 MG/2 ML VIAL IV PRN (13:40)
[2020-01-22] MEDS ORDERED: MAGNESIUM SULF RIDER 4 GM in PREMIX 1 EACH IV PRN (13:40)
[2020-01-22] MEDS ORDERED: CALCIUM CHLORIDE 1,000 MG/10 ML SYRINGE IV PRN (13:40)
[2020-01-22] MEDS ORDERED: VECURONIUM 10 MG VIAL IV PRN ×2 (13:40)
[2020-01-22] MEDS ORDERED: CHLORHEXIDINE 4% SOLN 118 ML BOTTLE TOP PRN (13:40)
[2020-01-22] MEDS ORDERED: DEXTROSE 10% 250 ML BAG IV PRN ×2 (13:40)
[2020-01-22] MEDS ORDERED: INSULIN REGULAR 100 UNIT/ML IV ONE (13:40)
[2020-01-22] MEDS ORDERED: MAGNESIUM SULF RIDER 2 GM in PREMIX 1 EACH IV PRN (13:40)
[2020-01-22 13:43] LABS: ABG Base Excess -2.3 MMOL/L (-2.5-2.5); ABG HCO3 22.5 MMOL/L (20-26); ABG Oxygen Saturation 99.5 % (95-100); ABG PCO2 31.4 MM HG (35-48); ABG PH 7.439 (7.35-7.45); ABG TCO2 19.7 MMOL/L (23-27); Glucose Heart Surgery 143 MG/DL (74-106); Hematocrit Heart Surgery 25.9 PERCENT (42-52); Hemoglobin Heart Surgery 8.3 G/DL (14.0-18.0); Potassium Heart/CVR 3.9 MMOL/L (3.5-5.1)
[2020-01-22 13:45] LABS: Basophils % 0.1 % (0.0-0.8); Eosinophils % 0.1 % (0.00-10.9); Hematocrit 21.1 VOL% (42.0-52.0); Hemoglobin 6.8 GM/DL (14.0-18.0); Immature Granulocytes % 0.9 %; Immature Granulocytes Absolute 0.06 #; Lymphocytes # 0.5 10*3/uL (1.4-4.0); Lymphocytes % 7.1 % (21.2-54.2); Mean Corpuscular HGB Conc 32.2 GM/DL (32-36); Mean Corpuscular Volume 79.6 FL (87-102); Mean Platelet Volume 9.3 FL (9.6-12.0); Monocytes % 4.9 % (1.7-12.7); Neutrophils % 86.9 % (38.7-73.9); Platelet Count 134 T/CUMM (130-400); Red Blood Count 2.65 MC/CUMM (3.8-5.5); Red Cell Distribution Width 16.7 % (9.3-17.3); White Blood Count 6.9 T/CUMM (4-12)
[2020-01-22] MEDS: POTASSIUM CHLORIDE RIDER 20 MEQ in PREMIX 1 EACH IV PRN (13:58)
[2020-01-22 14:00] LABS: INR 1.1; Partial Thromboplastin Time 29.9 SECS (20.8-36.0)
[2020-01-22 14:01] LABS: Albumin 2.4 G/DL (3.4-5.0); Bilirubin,Total 1.2 MG/DL (0.2-1.0); Calcium 8.5 MG/DL (8.5-10.1); Total Protein 6.1 G/DL (6.4-8.3)
[2020-01-22 14:02] LABS: Osmolality,Calculated 276.8 MOS/KG (273-304)
[2020-01-22 14:03] LABS: CKMB % 7.3 %
[2020-01-22 14:04] LABS: Troponin I 24.3 NG/ML (0.00-0.045)
[2020-01-22 14:26] LABS: Hematocrit Heart Surgery 21.7 PERCENT (42-52); Hemoglobin Heart Surgery 6.9 G/DL (14.0-18.0); PCO2 Patient Temp Venous 36.9 MM HG; PH Patient Temp Venous 7.411; PO2 Patient Temp Venous 25.7 MM HG; Potassium Heart/CVR 4.4 MMOL/L (3.5-5.1); VBG Base Excess -0.9 MEQ/L (0-4); VBG Oxygen Saturation 41.8 %; VBG PCO2 36.9 MMHG (41-51); VBG PH 7.411; VBG PO2 25.7 MMHG (17-40)
[2020-01-22] MEDS: NITROPRUSSIDE 100 MG in DEXTROSE 5% 250 ML IV PRN (15:48)
[2020-01-22] MEDS: INSULIN REGULAR DRIP 100 ML IV SCH ×2 (16:35→17:33)
[2020-01-22] MEDS: ALBUMIN 5% 12.5 GM in PREMIX 1 EACH IV PRN (17:05)
[2020-01-22 17:22] LABS: ABG Base Excess -4.5 MMOL/L (-2.5-2.5); ABG HCO3 20.7 MMOL/L (20-26); ABG Oxygen Saturation 99.3 % (95-100); ABG PCO2 31.9 MM HG (35-48); ABG PH 7.398 (7.35-7.45); ABG TCO2 18.2 MMOL/L (23-27); Glucose Heart Surgery 165 MG/DL (74-106); Hematocrit Heart Surgery 26.9 PERCENT (42-52); Hemoglobin Heart Surgery 8.7 G/DL (14.0-18.0); Potassium Heart/CVR 4.5 MMOL/L (3.5-5.1)
[2020-01-22] MEDS: VANCOMYCIN INJ 1,000 MG in SODIUM CHLORIDE 0.9% 250 ML IV SCH (18:33)
[2020-01-22] MEDS ORDERED: DOBUTamine 500 MG/250 ML PREMIX IV ONE (18:35)
[2020-01-22] MEDS ORDERED: DOBUTamine 500 MG/250 ML PREMIX IV SCH (19:00)
[2020-01-22] MEDS ORDERED: NITROGLYCERIN DRIP 50 MG/250 ML BOTTLE IV PRN (19:56)
[2020-01-22] MEDS ORDERED: FUROSEMIDE 40 MG/4 ML VIAL IV ONE (21:11)
[2020-01-22] MEDS: MIDAZOLAM 2 MG/2 ML VIAL IV PRN (21:49)
[2020-01-22 22:02] LABS: ABG Base Excess -4.7 MMOL/L (-2.5-2.5); ABG HCO3 20.6 MMOL/L (20-26); ABG Oxygen Saturation 99.3 % (95-100); ABG PCO2 35.8 MM HG (35-48); ABG PH 7.359 (7.35-7.45); ABG TCO2 18.3 MMOL/L (23-27); Glucose Heart Surgery 129 MG/DL (74-106); Hematocrit Heart Surgery 32.5 PERCENT (42-52); Hemoglobin Heart Surgery 10.5 G/DL (14.0-18.0); Potassium Heart/CVR 4.1 MMOL/L (3.5-5.1)
[2020-01-22 23:26] LABS: CKMB % 7.2 %
[2020-01-22 23:27] LABS: Troponin I 37.7 NG/ML (0.00-0.045)
[2020-01-23] MEDS: POTASSIUM CHLORIDE RIDER 20 MEQ in PREMIX 1 EACH IV PRN (02:00)
[2020-01-23 02:05] LABS: ABG Base Excess -4.4 MMOL/L (-2.5-2.5); ABG HCO3 19.5 MMOL/L (20-26); ABG Oxygen Saturation 98.4 % (95-100); ABG PCO2 32.4 MM HG (35-48); ABG PH 7.398 (7.35-7.45); ABG PO2 130.2 MM HG (80-95); ABG TCO2 20.5 MMOL/L (23-27); Glucose Heart Surgery 122 MG/DL (74-106); Hemoglobin Heart Surgery 11.8 G/DL (14.0-18.0); Potassium Heart/CVR 4.6 MMOL/L (3.5-5.1)
[2020-01-23] MEDS: MORPHINE 4 MG/1 ML VIAL IV PRN ×2 (02:42→06:31)
[2020-01-23] MEDS: MIDAZOLAM 2 MG/2 ML VIAL IV PRN ×3 (04:41→13:00)
[2020-01-23 05:00] LABS: ABG Base Excess -4.4 MMOL/L (-2.5-2.5); ABG HCO3 20.7 MMOL/L (20-26); ABG Oxygen Saturation 96.5 % (95-100); ABG PCO2 35.3 MM HG (35-48); ABG PH 7.367 (7.35-7.45); ABG PO2 85.7 MM HG (80-95); ABG TCO2 18.2 MMOL/L (23-27); Glucose Heart Surgery 130 MG/DL (74-106); Hematocrit Heart Surgery 34.7 PERCENT (42-52); Hemoglobin Heart Surgery 11.2 G/DL (14.0-18.0); Potassium Heart/CVR 4.5 MMOL/L (3.5-5.1)
[2020-01-23 05:46] LABS: CKMB % 6.4 %
[2020-01-23 05:48] LABS: Albumin 2.5 G/DL (3.4-5.0); Bilirubin,Direct 0.29 MG/DL (0.0-0.20); Calcium 8.3 MG/DL (8.5-10.1); Osmolality,Calculated 277.7 MOS/KG (273-304); Total Protein 6.1 G/DL (6.4-8.3); Troponin I 38.3 NG/ML (0.00-0.045)
[2020-01-23 05:50] LABS: Basophils % 0.1 % (0.0-0.8); Hematocrit 32.2 VOL% (42.0-52.0); Immature Granulocytes % 0.3 %; Immature Granulocytes Absolute 0.03 #; Lymphocytes # 0.5 10*3/uL (1.4-4.0); Lymphocytes % 4.2 % (21.2-54.2); Mean Corpuscular HGB Conc 33.9 GM/DL (32-36); Mean Platelet Volume 10.5 FL (9.6-12.0); Neutrophils % 90.4 % (38.7-73.9); Platelet Count 138 T/CUMM (130-400); Red Cell Distribution Width 16.8 % (9.3-17.3)
[2020-01-23 05:51] LABS: Red Blood Count 3.88 MC/CUMM (3.8-5.5); White Blood Count 11.6 T/CUMM (4-12)
[2020-01-23 05:52] LABS: Hemoglobin 10.9 GM/DL (14.0-18.0)
[2020-01-23] MEDS: VANCOMYCIN INJ 1,000 MG in SODIUM CHLORIDE 0.9% 250 ML IV SCH ×2 (06:20→18:46)
[2020-01-23 06:46] LABS: Band Neutrophils 5 % (0-10); Hypochromasia Slight; Lymphocytes 3 % (20-55); Platelet Estimate Normal; Segmented Neutrophils 88 % (50-85); Total Cells Counted 100
[2020-01-23] MEDS: ALBUMIN 5% 12.5 GM in PREMIX 1 EACH IV PRN ×2 (08:15→09:29)
[2020-01-23] MEDS: DEXMEDETOMIDINE 200 MCG in SODIUM CHLORIDE 0.9% 48 ML IV PRN ×2 (08:20→11:28)
[2020-01-23] MEDS: hydrALAZINE 20 MG/1 ML VIAL IV SCH ×3 (09:21→20:13)
[2020-01-23] MEDS: MORPHINE 10 MG/1 ML VIAL IV PRN ×2 (10:50→22:30)
[2020-01-23] MEDS: CHLORHEXIDINE 0.12% ORAL RINSE 60 ML BOTTLE SWISH/SPIT SCH ×2 (10:53→20:55)
[2020-01-23] MEDS: LACTATED RINGERS 250 ML IV PRN ×4 (11:00→17:00)
[2020-01-23] MEDS ORDERED: HALOPERIDOL 5 MG/ML AMP IV ONE (11:21)
[2020-01-23 11:24] LABS: ABG HCO3 17.8 MMOL/L (20-26); ABG PCO2 29.5 MM HG (35-48); ABG PH 7.399 (7.35-7.45); ABG PO2 89.6 MM HG (80-95); ABG TCO2 18.7 MMOL/L (23-27); Glucose Heart Surgery 137 MG/DL (74-106); Hemoglobin Heart Surgery 9.9 G/DL (14.0-18.0); Potassium Heart/CVR 4.6 MMOL/L (3.5-5.1)
[2020-01-23] MEDS: DEXMEDETOMIDINE 400 MCG in SODIUM CHLORIDE 0.9% 96 ML IV PRN ×2 (14:44→21:35)
[2020-01-23] MEDS: INSULIN REGULAR DRIP 100 ML IV SCH (14:46)
[2020-01-23] MEDS: DOBUTamine 500 MG/250 ML PREMIX IV SCH (14:49)
[2020-01-23] MEDS: SODIUM CHLORIDE 0.45% 1,000 ML IV SCH ×2 (14:56)
[2020-01-23 15:42] LABS: ABG Base Excess -5.4 MMOL/L (-2.5-2.5); ABG HCO3 18.2 MMOL/L (20-26); ABG Oxygen Saturation 96.8 % (95-100); ABG PH 7.415 (7.35-7.45); ABG PO2 96.6 MM HG (80-95); ABG TCO2 19.1 MMOL/L (23-27); Glucose Heart Surgery 164 MG/DL (74-106); Hemoglobin Heart Surgery 9.7 G/DL (14.0-18.0); Potassium Heart/CVR 4.5 MMOL/L (3.5-5.1)
[2020-01-23] MEDS ORDERED: GLUCAGON 1 MG VIAL IM PRN (15:54)
[2020-01-23 16:29] LABS: CKMB % 5.9 %
[2020-01-23] MEDS: INSULIN REGULAR 100 UNIT/ML SUBCUT SCH ×2 (16:46→20:09)
[2020-01-23] MEDS ORDERED: FUROSEMIDE 40 MG/4 ML VIAL IV ONE (21:46)
[2020-01-24] MEDS: INSULIN REGULAR 100 UNIT/ML SUBCUT SCH ×6 (00:08→22:11)
[2020-01-24] MEDS: LACTATED RINGERS 250 ML IV PRN ×4 (02:00→05:30)
[2020-01-24] MEDS: hydrALAZINE 20 MG/1 ML VIAL IV SCH ×4 (02:23→22:10)
[2020-01-24] MEDS: NITROPRUSSIDE 100 MG in DEXTROSE 5% 250 ML IV PRN ×2 (04:00→16:37)
[2020-01-24] MEDS: DEXMEDETOMIDINE 400 MCG in SODIUM CHLORIDE 0.9% 96 ML IV PRN (04:10)
[2020-01-24 04:27] LABS: ABG Base Excess -1.9 MMOL/L (-2.5-2.5); ABG HCO3 22.9 MMOL/L (20-26); ABG PCO2 29.9 MM HG (35-48); ABG PH 7.453 (7.35-7.45); Glucose Heart Surgery 172 MG/DL (74-106); Hematocrit Heart Surgery 41.8 PERCENT (42-52); Hemoglobin Heart Surgery 13.6 G/DL (14.0-18.0)
[2020-01-24 04:33] LABS: Hematocrit 26.2 VOL% (42.0-52.0); Hemoglobin 8.5 GM/DL (14.0-18.0); Immature Granulocytes % 0.8 %; Immature Granulocytes Absolute 0.08 #; Lymphocytes # 0.7 10*3/uL (1.4-4.0); Lymphocytes % 7.1 % (21.2-54.2); Mean Corpuscular HGB Conc 32.4 GM/DL (32-36); Mean Corpuscular Volume 84.8 FL (87-102); Mean Platelet Volume 9.9 FL (9.6-12.0); Monocytes % 6.1 % (1.7-12.7); Platelet Count 108 T/CUMM (130-400); Red Blood Count 3.09 MC/CUMM (3.8-5.5); Red Cell Distribution Width 17.2 % (9.3-17.3); White Blood Count 9.6 T/CUMM (4-12)
[2020-01-24] MEDS: POTASSIUM CHLORIDE RIDER 20 MEQ in PREMIX 1 EACH IV PRN (04:36)
[2020-01-24 04:52] LABS: Albumin 2.5 G/DL (3.4-5.0); Bilirubin,Direct 0.24 MG/DL (0.0-0.20); Bilirubin,Total 0.6 MG/DL (0.2-1.0); Calcium 7.9 MG/DL (8.5-10.1); Hypochromasia 1+; Osmolality,Calculated 284.5 MOS/KG (273-304); Ovalocytes Slight; Platelet Estimate Decreased; Total Protein 5.6 G/DL (6.4-8.3)
[2020-01-24] MEDS: VANCOMYCIN INJ 1,000 MG in SODIUM CHLORIDE 0.9% 250 ML IV SCH (05:46)
[2020-01-24 08:12] LABS: ABG Base Excess -2.2 MMOL/L (-2.5-2.5); ABG Oxygen Saturation 97.9 % (95-100); ABG PCO2 34.7 MM HG (35-48); ABG PH 7.419 (7.35-7.45); ABG PO2 123.4 MM HG (80-95)
[2020-01-24] MEDS: ASPIRIN EC 81 MG TABLET PO SCH (08:55)
[2020-01-24 09:56] LABS: ABG Base Excess -2.3 MMOL/L (-2.5-2.5); ABG HCO3 22.4 MMOL/L (20-26); ABG Oxygen Saturation 98.7 % (95-100); ABG PCO2 33.9 MM HG (35-48); ABG PH 7.415 (7.35-7.45); ABG TCO2 20.1 MMOL/L (23-27)
[2020-01-24] MEDS ORDERED: HEPARIN/NACL 0.9% 2 UNITS/ML 500 ML IV ONE (10:46)
[2020-01-24] MEDS: HEPARIN/NACL 0.9% 2 UNITS/ML 500 ML IV SCH (10:56)
[2020-01-24] MEDS: DOBUTamine 500 MG/250 ML PREMIX IV SCH (12:03)
[2020-01-24] MEDS: MORPHINE 10 MG/1 ML VIAL IV PRN (12:59)
[2020-01-24] MEDS: CHLORHEXIDINE 0.12% ORAL RINSE 60 ML BOTTLE SWISH/SPIT SCH ×2 (13:01→22:12)
[2020-01-24 13:14] LABS: ABG Base Excess -3.7 MMOL/L (-2.5-2.5); ABG HCO3 21.2 MMOL/L (20-26); ABG Oxygen Saturation 95.1 % (95-100); ABG PCO2 38.5 MM HG (35-48); ABG PH 7.354 (7.35-7.45); ABG PO2 79.5 MM HG (80-95); ABG TCO2 19.9 MMOL/L (23-27); Glucose Heart Surgery 132 MG/DL (74-106); Hematocrit Heart Surgery 27.3 PERCENT (42-52); Hemoglobin Heart Surgery 8.8 G/DL (14.0-18.0); Potassium Heart/CVR 4.3 MMOL/L (3.5-5.1)
[2020-01-24] MEDS ORDERED: methylPREDNISolone SOD SUC 125 MG/2 ML VIAL IV ONE (14:00)
[2020-01-24] MEDS: SODIUM CHLORIDE 0.45% 1,000 ML IV SCH (16:19)
[2020-01-24] MEDS: cloNIDine 0.1 MG TABLET PO SCH (16:42)
[2020-01-24] MEDS ORDERED: FUROSEMIDE 40 MG/4 ML VIAL IV ONE (20:03)
[2020-01-25] MEDS ORDERED: FUROSEMIDE 40 MG/4 ML VIAL IV ONE ×3 (00:42→01:44)
[2020-01-25 00:57] LABS: ABG Base Excess -3.4 MMOL/L (-2.5-2.5); ABG HCO3 21.5 MMOL/L (20-26); ABG Oxygen Saturation 90.9 % (95-100); ABG PCO2 34.1 MM HG (35-48); ABG PH 7.395 (7.35-7.45); ABG PO2 61.2 MM HG (80-95); ABG TCO2 19.2 MMOL/L (23-27)
[2020-01-25] MEDS: ALBUTEROL/IPRATROPIUM 3 ML NEB RESP TX SCH ×6 (01:11→20:07)
[2020-01-25] MEDS: cloNIDine 0.1 MG TABLET PO SCH ×4 (01:13→22:22)
[2020-01-25 01:15] LABS: Basophils % 0.1 % (0.0-0.8); Hematocrit 26.3 VOL% (42.0-52.0); Hemoglobin 8.4 GM/DL (14.0-18.0); Immature Granulocytes % 1.2 %; Immature Granulocytes Absolute 0.15 #; Lymphocytes # 0.5 10*3/uL (1.4-4.0); Lymphocytes % 4.2 % (21.2-54.2); Mean Corpuscular HGB Conc 31.9 GM/DL (32-36); Mean Corpuscular Volume 86.8 FL (87-102); Mean Platelet Volume 9.6 FL (9.6-12.0); Monocytes % 3.5 % (1.7-12.7); Platelet Count 141 T/CUMM (130-400); Red Blood Count 3.03 MC/CUMM (3.8-5.5); Red Cell Distribution Width 17.6 % (9.3-17.3); White Blood Count 12.7 T/CUMM (4-12)
[2020-01-25] MEDS: INSULIN REGULAR 100 UNIT/ML SUBCUT SCH ×6 (01:19→22:22)
[2020-01-25 01:33] LABS: Albumin 2.8 G/DL (3.4-5.0); Bilirubin,Direct 0.31 MG/DL (0.0-0.20); Bilirubin,Total 0.6 MG/DL (0.2-1.0); Osmolality,Calculated 287.7 MOS/KG (273-304); Total Protein 6.2 G/DL (6.4-8.3)
[2020-01-25] MEDS ORDERED: PHENOL 1.4% THROAT SPRAY 177 ML BOTTLE PO PRN (01:45)
[2020-01-25] MEDS: hydrALAZINE 20 MG/1 ML VIAL IV SCH ×4 (02:07→22:22)
[2020-01-25 02:09] LABS: Band Neutrophils 1 % (0-10); Lymphocytes 2 % (20-55); Segmented Neutrophils 94 % (50-85); Total Cells Counted 100
[2020-01-25] MEDS: FUROSEMIDE INJ 100 MG in SODIUM CHLORIDE 0.9% 90 ML IV SCH ×5 (02:10→23:46)
[2020-01-25 02:11] LABS: Anisocytosis 1+; Ovalocytes 1+; Platelet Estimate Normal
[2020-01-25] MEDS: NITROPRUSSIDE 100 MG in DEXTROSE 5% 250 ML IV PRN ×3 (05:45→22:51)
[2020-01-25 06:52] LABS: Albumin 2.6 G/DL (3.4-5.0); Bilirubin,Total 0.6 MG/DL (0.2-1.0); CKMB % 8.9 %; Calcium 8.1 MG/DL (8.5-10.1); Osmolality,Calculated 286.7 MOS/KG (273-304)
[2020-01-25] MEDS ORDERED: METOPROLOL TARTRATE 5 MG/5 ML VIAL IV ONE (08:11)
[2020-01-25] MEDS ORDERED: metOLazone 5 MG TABLET PO SCH (09:00)
[2020-01-25] MEDS: MORPHINE 4 MG/1 ML VIAL IV PRN ×3 (09:35→17:00)
[2020-01-25] MEDS: hydrALAZINE 25 MG TABLET PO SCH ×2 (11:02→22:23)
[2020-01-25] MEDS: carvediloL 6.25 MG TABLET PO SCH ×2 (11:02→22:23)
[2020-01-25] MEDS: ASPIRIN EC 81 MG TABLET PO SCH (11:02)
[2020-01-25] MEDS: ISOSORBIDE MONONITRATE 30 MG TABLET PO SCH (11:02)
[2020-01-25] MEDS: CHLORHEXIDINE 0.12% ORAL RINSE 60 ML BOTTLE SWISH/SPIT SCH ×2 (11:02→22:23)
[2020-01-25] MEDS: HEPARIN/NACL 0.9% 2 UNITS/ML 500 ML IV SCH (15:28)
[2020-01-25] MEDS: SODIUM CHLORIDE 0.45% 1,000 ML IV SCH (15:30)
[2020-01-26] MEDS: ALBUTEROL/IPRATROPIUM 3 ML NEB RESP TX SCH ×7 (00:30→23:50)
[2020-01-26] MEDS: INSULIN REGULAR 100 UNIT/ML SUBCUT SCH ×6 (00:47→22:17)
[2020-01-26] MEDS: hydrALAZINE 20 MG/1 ML VIAL IV SCH ×4 (03:12→22:04)
[2020-01-26] MEDS: FUROSEMIDE INJ 100 MG in SODIUM CHLORIDE 0.9% 90 ML IV SCH ×4 (04:48→20:30)
[2020-01-26 05:29] LABS: Basophils % 0.1 % (0.0-0.8); Hematocrit 21.9 VOL% (42.0-52.0); Immature Granulocytes % 1.3 %; Immature Granulocytes Absolute 0.16 #; Lymphocytes # 0.9 10*3/uL (1.4-4.0); Lymphocytes % 7.8 % (21.2-54.2); Mean Corpuscular Volume 87.6 FL (87-102); Mean Platelet Volume 9.8 FL (9.6-12.0); Monocytes % 6.9 % (1.7-12.7); NRBC # 0.02 10*3/uL; Neutrophils % 83.9 % (38.7-73.9); Platelet Count 174 T/CUMM (130-400); Red Cell Distribution Width 18.1 % (9.3-17.3); White Blood Count 12.1 T/CUMM (4-12)
[2020-01-26 05:51] LABS: Albumin 2.6 G/DL (3.4-5.0); Bilirubin,Total 0.7 MG/DL (0.2-1.0); CKMB % 4.8 %; Calcium 8.1 MG/DL (8.5-10.1); Osmolality,Calculated 288.7 MOS/KG (273-304); Total Protein 5.9 G/DL (6.4-8.3)
[2020-01-26] MEDS: cloNIDine 0.1 MG TABLET PO SCH ×3 (06:34→22:00)
[2020-01-26] MEDS ORDERED: SODIUM CHLORIDE 0.9% 1,000 ML IV PRN (08:26)
[2020-01-26] MEDS: ASPIRIN EC 81 MG TABLET PO SCH (09:14)
[2020-01-26] MEDS: ISOSORBIDE MONONITRATE 30 MG TABLET PO SCH (09:14)
[2020-01-26] MEDS: carvediloL 6.25 MG TABLET PO SCH ×2 (09:14→22:00)
[2020-01-26] MEDS: CHLORHEXIDINE 0.12% ORAL RINSE 60 ML BOTTLE SWISH/SPIT SCH ×2 (09:14→22:18)
[2020-01-26] MEDS: hydrALAZINE 25 MG TABLET PO SCH ×2 (11:15→22:00)
[2020-01-26] MEDS: HEPARIN/NACL 0.9% 2 UNITS/ML 500 ML IV SCH (12:14)
[2020-01-26] MEDS: ASCORBIC ACID 500 MG TABLET PO SCH ×2 (12:21→22:00)
[2020-01-26] MEDS: SODIUM CHLORIDE 0.45% 1,000 ML IV SCH (14:40)
[2020-01-27] MEDS: INSULIN REGULAR 100 UNIT/ML SUBCUT SCH ×6 (00:05→22:27)
[2020-01-27] MEDS: SODIUM CHLORIDE 0.45% 1,000 ML IV SCH ×2 (00:07→12:59)
[2020-01-27] MEDS: NITROPRUSSIDE 100 MG in DEXTROSE 5% 250 ML IV PRN (00:08)
[2020-01-27] MEDS: FUROSEMIDE INJ 100 MG in SODIUM CHLORIDE 0.9% 90 ML IV SCH ×3 (01:04→14:20)
[2020-01-27] MEDS: hydrALAZINE 20 MG/1 ML VIAL IV SCH ×4 (03:07→22:35)
[2020-01-27] MEDS: ALBUTEROL/IPRATROPIUM 3 ML NEB RESP TX SCH ×6 (03:25→23:40)
[2020-01-27 06:28] LABS: Eosinophils % 0.2 % (0.00-10.9); Hematocrit 24.1 VOL% (42.0-52.0); Hemoglobin 7.6 GM/DL (14.0-18.0); Immature Granulocytes % 1.7 %; Immature Granulocytes Absolute 0.17 #; Lymphocytes # 0.9 10*3/uL (1.4-4.0); Lymphocytes % 8.4 % (21.2-54.2); Mean Corpuscular HGB Conc 31.5 GM/DL (32-36); Mean Corpuscular Volume 87.3 FL (87-102); Monocytes % 6.2 % (1.7-12.7); NRBC # 0.02 10*3/uL; Neutrophils % 83.5 % (38.7-73.9); Platelet Count 159 T/CUMM (130-400); Red Blood Count 2.76 MC/CUMM (3.8-5.5); Red Cell Distribution Width 17.2 % (9.3-17.3); White Blood Count 10.2 T/CUMM (4-12)
[2020-01-27] MEDS: cloNIDine 0.1 MG TABLET PO SCH ×3 (06:28→22:34)
[2020-01-27 06:47] LABS: Albumin 2.5 G/DL (3.4-5.0); Bilirubin,Total 0.9 MG/DL (0.2-1.0); Calcium 8.3 MG/DL (8.5-10.1); Osmolality,Calculated 288.8 MOS/KG (273-304); Total Protein 5.9 G/DL (6.4-8.3)
[2020-01-27] MEDS: ISOSORBIDE MONONITRATE 30 MG TABLET PO SCH (08:03)
[2020-01-27] MEDS: carvediloL 6.25 MG TABLET PO SCH ×2 (08:03→22:32)
[2020-01-27] MEDS: ASCORBIC ACID 500 MG TABLET PO SCH ×2 (08:03→22:32)
[2020-01-27] MEDS: ASPIRIN EC 81 MG TABLET PO SCH (08:03)
[2020-01-27] MEDS: hydrALAZINE 25 MG TABLET PO SCH ×3 (08:04→22:31)
[2020-01-27] MEDS: CHLORHEXIDINE 0.12% ORAL RINSE 60 ML BOTTLE SWISH/SPIT SCH ×2 (08:04→22:33)
[2020-01-27] MEDS ORDERED: SODIUM CHLORIDE 0.9% 1,000 ML IV PRN (08:19)
[2020-01-27] MEDS ORDERED: FUROSEMIDE 40 MG/4 ML VIAL IV ONE (08:21)
[2020-01-27] MEDS: HEPARIN/NACL 0.9% 2 UNITS/ML 500 ML IV SCH (11:19)
[2020-01-27] MEDS: POTASSIUM CHLORIDE RIDER 20 MEQ in PREMIX 1 EACH IV PRN (11:30)
[2020-01-27] MEDS ORDERED: FUROSEMIDE 40 MG/4 ML VIAL ONE (14:27)
[2020-01-28] MEDS: FUROSEMIDE INJ 100 MG in SODIUM CHLORIDE 0.9% 90 ML IV SCH ×3 (01:19→15:05)
[2020-01-28] MEDS: INSULIN REGULAR 100 UNIT/ML SUBCUT SCH ×6 (01:59→21:13)
[2020-01-28] MEDS: ALBUTEROL/IPRATROPIUM 3 ML NEB RESP TX SCH ×6 (04:23→23:42)
[2020-01-28] MEDS: hydrALAZINE 20 MG/1 ML VIAL IV SCH ×4 (05:08→21:13)
[2020-01-28] MEDS: cloNIDine 0.1 MG TABLET PO SCH ×3 (06:24→21:15)
[2020-01-28 07:39] LABS: Basophils % 0.1 % (0.0-0.8); Eosinophils # 0.1 10*3/uL (0.0-0.87); Eosinophils % 0.6 % (0.00-10.9); Hematocrit 28.3 VOL% (42.0-52.0); Immature Granulocytes % 1.9 %; Immature Granulocytes Absolute 0.23 #; Lymphocytes # 1.1 10*3/uL (1.4-4.0); Lymphocytes % 9.2 % (21.2-54.2); Mean Corpuscular HGB Conc 32.5 GM/DL (32-36); Mean Corpuscular Volume 87.6 FL (87-102); Mean Platelet Volume 9.6 FL (9.6-12.0); Monocytes % 5.6 % (1.7-12.7); Neutrophils % 82.6 % (38.7-73.9); Platelet Count 151 T/CUMM (130-400); Red Blood Count 3.23 MC/CUMM (3.8-5.5); Red Cell Distribution Width 16.3 % (9.3-17.3)
[2020-01-28 07:48] LABS: Hemoglobin 9.2 GM/DL (14.0-18.0)
[2020-01-28 07:55] LABS: Albumin 2.7 G/DL (3.4-5.0); Bilirubin,Total 1.1 MG/DL (0.2-1.0); Calcium 8.2 MG/DL (8.5-10.1); Osmolality,Calculated 288.7 MOS/KG (273-304); Total Protein 6.3 G/DL (6.4-8.3)
[2020-01-28] MEDS: POLYETHYLENE GLYCOL POWDER 17 GM PACK PO SCH (09:53)
[2020-01-28] MEDS: glyBURIDE 2.5 MG TABLET PO SCH (09:53)
[2020-01-28] MEDS: ASCORBIC ACID 500 MG TABLET PO SCH ×2 (09:53→21:15)
[2020-01-28] MEDS: ISOSORBIDE MONONITRATE 30 MG TABLET PO SCH (09:53)
[2020-01-28] MEDS: ASPIRIN EC 81 MG TABLET PO SCH (09:54)
[2020-01-28] MEDS: POTASSIUM CHLORIDE RIDER 20 MEQ in PREMIX 1 EACH IV PRN ×2 (09:56→15:03)
[2020-01-28] MEDS: carvediloL 6.25 MG TABLET PO SCH ×2 (09:56→21:16)
[2020-01-28] MEDS: CHLORHEXIDINE 0.12% ORAL RINSE 60 ML BOTTLE SWISH/SPIT SCH ×2 (09:57→21:16)
[2020-01-28] MEDS: hydrALAZINE 25 MG TABLET PO SCH ×3 (11:23→21:15)
[2020-01-28] MEDS ORDERED: LEVOFLOXACIN INJ 500 MG in PREMIX 1 EACH IV SCH (13:00)
[2020-01-28] MEDS: SODIUM CHLORIDE 0.45% 1,000 ML IV SCH (13:02)
[2020-01-29] MEDS: INSULIN REGULAR 100 UNIT/ML SUBCUT SCH ×3 (02:05→08:03)
[2020-01-29] MEDS: hydrALAZINE 20 MG/1 ML VIAL IV SCH ×2 (02:06→08:03)
[2020-01-29] MEDS: SODIUM CHLORIDE 0.45% 1,000 ML IV SCH (02:35)
[2020-01-29] MEDS: ALBUTEROL/IPRATROPIUM 3 ML NEB RESP TX SCH ×2 (04:44→10:32)
[2020-01-29 05:25] LABS: Basophils % 0.1 % (0.0-0.8); Eosinophils # 0.1 10*3/uL (0.0-0.87); Eosinophils % 0.7 % (0.00-10.9); Hematocrit 26.7 VOL% (42.0-52.0); Hemoglobin 8.6 GM/DL (14.0-18.0); Immature Granulocytes % 1.8 %; Immature Granulocytes Absolute 0.19 #; Mean Corpuscular HGB Conc 32.2 GM/DL (32-36); Mean Corpuscular Volume 88.1 FL (87-102); Mean Platelet Volume 9.4 FL (9.6-12.0); Monocytes % 6.6 % (1.7-12.7); Neutrophils % 81.8 % (38.7-73.9); Platelet Count 159 T/CUMM (130-400); Red Blood Count 3.03 MC/CUMM (3.8-5.5); Red Cell Distribution Width 16.6 % (9.3-17.3); White Blood Count 10.8 T/CUMM (4-12)
[2020-01-29 05:49] LABS: Alanine Aminotransferase 17 U/L (16-61); Albumin 2.3 G/DL (3.4-5.0); Alkaline Phosphatase 99 U/L (45-117); Aspartate Amino Transferase 52 U/L (0-37); Blood Urea Nitrogen 46 MG/DL (7-18); Calcium 7.9 MG/DL (8.5-10.1); Estimated Glom Filtration Rate 46 ML/MIN; Glucose 89 MG/DL (74-106); Osmolality,Calculated 280.1 MOS/KG (273-304); Total Protein 5.9 G/DL (6.4-8.3)
[2020-01-29] MEDS: FUROSEMIDE INJ 100 MG in SODIUM CHLORIDE 0.9% 90 ML IV SCH (07:38)
[2020-01-29] MEDS: cloNIDine 0.1 MG TABLET PO SCH ×3 (08:02→21:10)
[2020-01-29] MEDS: POTASSIUM CHLORIDE RIDER 20 MEQ in PREMIX 1 EACH IV PRN (08:05)
[2020-01-29] MEDS: FUROSEMIDE 40 MG/4 ML VIAL IV SCH ×2 (08:05→15:13)
[2020-01-29] MEDS: POLYETHYLENE GLYCOL POWDER 17 GM PACK PO SCH (08:42)
[2020-01-29] MEDS: glyBURIDE 2.5 MG TABLET PO SCH (08:43)
[2020-01-29] MEDS: ASPIRIN EC 81 MG TABLET PO SCH (08:44)
[2020-01-29] MEDS: ASCORBIC ACID 500 MG TABLET PO SCH ×2 (08:44→21:10)
[2020-01-29] MEDS: CHLORHEXIDINE 0.12% ORAL RINSE 60 ML BOTTLE SWISH/SPIT SCH ×3 (08:45→21:13)
[2020-01-29] MEDS: hydrALAZINE 25 MG TABLET PO SCH ×3 (08:45→21:10)
[2020-01-29] MEDS: ISOSORBIDE MONONITRATE 30 MG TABLET PO SCH (08:45)
[2020-01-29] MEDS: carvediloL 6.25 MG TABLET PO SCH ×2 (08:45→21:10)
[2020-01-29] MEDS ORDERED: GLUCAGON 1 MG VIAL IM PRN (10:22)
[2020-01-29] MEDS ORDERED: ONDANSETRON 4 MG/2 ML VIAL IV PRN (10:22)
[2020-01-29] MEDS ORDERED: ACETAMINOPHEN 325 MG TABLET PO PRN (10:22)
[2020-01-29] MEDS ORDERED: MAGNESIUM HYDROXIDE SUSP 30 ML UDCUP PO PRN (10:22)
[2020-01-29] MEDS ORDERED: MAGNESIUM SULF RIDER 2 GM in PREMIX 1 EACH IV PRN (10:22)
[2020-01-29] MEDS ORDERED: ZALEPLON 5 MG CAPSULE PO PRN (10:22)
[2020-01-29] MEDS ORDERED: DEXTROSE 50% 25 GM/50 ML VIAL IV PRN (10:22)
[2020-01-29] MEDS ORDERED: oxyCODONE/ACETAMINOPHEN 5-325 MG TABLET PO PRN (10:22)
[2020-01-29] MEDS ORDERED: SODIUM CHLOR 0.45% KCL 20 MEQ 20 MEQ/1,000 ML BAG IV SCH (10:22)
[2020-01-29] MEDS ORDERED: MAGNESIUM SULF RIDER 4 GM in PREMIX 1 EACH IV PRN (10:22)
[2020-01-29] MEDS ORDERED: ALUMINUM/MAGNES/SIMETH MAX STR 30 ML UDCUP PO PRN (10:22)
[2020-01-29] MEDS: PANTOPRAZOLE 40 MG TABLET PO SCH (10:58)
[2020-01-29] MEDS: DOCUSATE SODIUM 100 MG CAPSULE PO SCH (10:58)
[2020-01-29] MEDS: FERROUS SULFATE 325 MG TABLET PO SCH (10:58)
[2020-01-29] MEDS: POTASSIUM CHLORIDE 20 MEQ TABLET PO PRN ×3 (11:00→15:14)
[2020-01-29] MEDS: LEVOFLOXACIN INJ 250 MG in PREMIX 1 EACH IV SCH (13:10)
[2020-01-29] MEDS: TERAZOSIN 10 MG CAPSULE PO SCH (21:12)
[2020-01-30] MEDS: cloNIDine 0.1 MG TABLET PO SCH ×3 (06:32→21:00)
[2020-01-30 06:46] LABS: Alanine Aminotransferase 16 U/L (16-61); Albumin 2.3 G/DL (3.4-5.0); Alkaline Phosphatase 93 U/L (45-117); Aspartate Amino Transferase 48 U/L (0-37); Bilirubin,Indirect 0.6 MG/DL (0.0-1.0); Blood Urea Nitrogen 40 MG/DL (7-18); Calcium 7.4 MG/DL (8.5-10.1); Estimated Glom Filtration Rate 49 ML/MIN; Glucose 63 MG/DL (74-106); Osmolality,Calculated 286.4 MOS/KG (273-304); Total Protein 5.9 G/DL (6.4-8.3)
[2020-01-30 08:05] LABS: Basophils % 0.1 % (0.0-0.8); Eosinophils # 0.1 10*3/uL (0.0-0.87); Eosinophils % 0.9 % (0.00-10.9); Hematocrit 25.4 VOL% (42.0-52.0); Hemoglobin 8.3 GM/DL (14.0-18.0); Immature Granulocytes % 1.9 %; Immature Granulocytes Absolute 0.18 #; Lymphocytes # 1.1 10*3/uL (1.4-4.0); Lymphocytes % 11.6 % (21.2-54.2); Mean Corpuscular HGB Conc 32.7 GM/DL (32-36); Mean Corpuscular Volume 88.5 FL (87-102); Mean Platelet Volume 9.9 FL (9.6-12.0); Monocytes % 6.4 % (1.7-12.7); Neutrophils % 79.1 % (38.7-73.9); Platelet Count 173 T/CUMM (130-400); Red Blood Count 2.87 MC/CUMM (3.8-5.5); Red Cell Distribution Width 16.7 % (9.3-17.3); White Blood Count 9.3 T/CUMM (4-12)
[2020-01-30] MEDS: FERROUS SULFATE 325 MG TABLET PO SCH (08:31)
[2020-01-30] MEDS: ASCORBIC ACID 500 MG TABLET PO SCH ×2 (08:31→20:52)
[2020-01-30] MEDS: ISOSORBIDE MONONITRATE 30 MG TABLET PO SCH (08:31)
[2020-01-30] MEDS: glyBURIDE 2.5 MG TABLET PO SCH (08:31)
[2020-01-30] MEDS: hydrALAZINE 25 MG TABLET PO SCH ×3 (08:31→20:52)
[2020-01-30] MEDS: POLYETHYLENE GLYCOL POWDER 17 GM PACK PO SCH (08:31)
[2020-01-30] MEDS: DOCUSATE SODIUM 100 MG CAPSULE PO SCH (08:31)
[2020-01-30] MEDS: ASPIRIN EC 81 MG TABLET PO SCH (08:31)
[2020-01-30] MEDS: PANTOPRAZOLE 40 MG TABLET PO SCH (08:32)
[2020-01-30] MEDS: CHLORHEXIDINE 0.12% ORAL RINSE 60 ML BOTTLE SWISH/SPIT SCH ×2 (08:32→20:57)
[2020-01-30] MEDS: carvediloL 6.25 MG TABLET PO SCH ×2 (08:32→20:53)
[2020-01-30] MEDS: FUROSEMIDE 40 MG/4 ML VIAL IV SCH ×2 (08:36→17:09)
[2020-01-30] MEDS: LACTULOSE 20 GM/30 ML UDCUP PO SCH ×4 (13:00→23:48)
[2020-01-30] MEDS: LEVOFLOXACIN INJ 250 MG in PREMIX 1 EACH IV SCH (13:00)
[2020-01-30] MEDS: TERAZOSIN 10 MG CAPSULE PO SCH (20:52)
[2020-01-31 05:34] LABS: Basophils % 0.1 % (0.0-0.8); Eosinophils # 0.1 10*3/uL (0.0-0.87); Eosinophils % 1.1 % (0.00-10.9); Hematocrit 25.8 VOL% (42.0-52.0); Hemoglobin 8.3 GM/DL (14.0-18.0); Immature Granulocytes % 1.2 %; Lymphocytes % 12.7 % (21.2-54.2); Mean Corpuscular HGB Conc 32.2 GM/DL (32-36); Mean Corpuscular Volume 89.3 FL (87-102); Mean Platelet Volume 9.6 FL (9.6-12.0); Monocytes % 6.5 % (1.7-12.7); Neutrophils % 78.4 % (38.7-73.9); Platelet Count 168 T/CUMM (130-400); Red Blood Count 2.89 MC/CUMM (3.8-5.5); Red Cell Distribution Width 16.7 % (9.3-17.3); White Blood Count 8.1 T/CUMM (4-12)
[2020-01-31 06:11] LABS: Albumin 2.3 G/DL (3.4-5.0); Bilirubin,Direct 0.39 MG/DL (0.0-0.20); Bilirubin,Indirect 0.6 MG/DL (0.0-1.0); Osmolality,Calculated 282.5 MOS/KG (273-304); Total Protein 6.2 G/DL (6.4-8.3)
[2020-01-31] MEDS: LACTULOSE 20 GM/30 ML UDCUP PO SCH (06:16)
[2020-01-31] MEDS: cloNIDine 0.1 MG TABLET PO SCH ×3 (06:16→21:26)
[2020-01-31] MEDS: DOCUSATE SODIUM 100 MG CAPSULE PO SCH (09:26)
[2020-01-31] MEDS: POTASSIUM CHLORIDE 20 MEQ TABLET PO PRN ×2 (09:26→13:32)
[2020-01-31] MEDS: hydrALAZINE 25 MG TABLET PO SCH ×3 (09:26→21:26)
[2020-01-31] MEDS: ASPIRIN EC 81 MG TABLET PO SCH (09:26)
[2020-01-31] MEDS: carvediloL 6.25 MG TABLET PO SCH ×2 (09:26→21:26)
[2020-01-31] MEDS: ISOSORBIDE MONONITRATE 30 MG TABLET PO SCH (09:27)
[2020-01-31] MEDS: ASCORBIC ACID 500 MG TABLET PO SCH ×2 (09:27→21:26)
[2020-01-31] MEDS: PANTOPRAZOLE 40 MG TABLET PO SCH (09:27)
[2020-01-31] MEDS: FERROUS SULFATE 325 MG TABLET PO SCH (09:27)
[2020-01-31] MEDS: glyBURIDE 2.5 MG TABLET PO SCH (09:27)
[2020-01-31] MEDS: CHLORHEXIDINE 0.12% ORAL RINSE 60 ML BOTTLE SWISH/SPIT SCH ×2 (09:28→21:27)
[2020-01-31] MEDS: FUROSEMIDE 40 MG/4 ML VIAL IV SCH ×2 (09:28→16:48)
[2020-01-31] MEDS: POLYETHYLENE GLYCOL POWDER 17 GM PACK PO SCH (09:28)
[2020-01-31] MEDS ORDERED: LACTULOSE 20 GM/30 ML UDCUP PO PRN (09:52)
[2020-01-31] MEDS: LEVOFLOXACIN INJ 250 MG in PREMIX 1 EACH IV SCH (13:32)
[2020-01-31] MEDS ORDERED: SODIUM CHLORIDE 0.9% 1,000 ML IV PRN (13:52)
[2020-01-31] MEDS ORDERED: FUROSEMIDE 40 MG/4 ML VIAL IV ONE (13:54)
[2020-01-31] MEDS: TERAZOSIN 10 MG CAPSULE PO SCH (21:26)
[2020-02-01 05:35] LABS: Basophils % 0.2 % (0.0-0.8); Eosinophils # 0.1 10*3/uL (0.0-0.87); Hematocrit 31.1 VOL% (42.0-52.0); Hemoglobin 9.9 GM/DL (14.0-18.0); Immature Granulocytes % 0.9 %; Immature Granulocytes Absolute 0.08 #; Lymphocytes % 11.5 % (21.2-54.2); Mean Corpuscular HGB Conc 31.8 GM/DL (32-36); Mean Corpuscular Volume 88.1 FL (87-102); Mean Platelet Volume 9.5 FL (9.6-12.0); Monocytes % 6.2 % (1.7-12.7); Neutrophils % 80.2 % (38.7-73.9); Platelet Count 189 T/CUMM (130-400); Red Blood Count 3.53 MC/CUMM (3.8-5.5); Red Cell Distribution Width 16.4 % (9.3-17.3); White Blood Count 8.7 T/CUMM (4-12)
[2020-02-01 06:00] LABS: Blood Urea Nitrogen 31 MG/DL (7-18); Calcium 8.4 MG/DL (8.5-10.1); Estimated Glom Filtration Rate 53 ML/MIN; Glucose 80 MG/DL (74-106); Osmolality,Calculated 280.7 MOS/KG (273-304)
[2020-02-01] MEDS: cloNIDine 0.1 MG TABLET PO SCH ×2 (06:19→14:07)
[2020-02-01] MEDS: glyBURIDE 2.5 MG TABLET PO SCH (08:00)
[2020-02-01] MEDS: ASPIRIN EC 81 MG TABLET PO SCH (08:01)
[2020-02-01] MEDS: hydrALAZINE 25 MG TABLET PO SCH ×2 (08:01→14:07)
[2020-02-01] MEDS: DOCUSATE SODIUM 100 MG CAPSULE PO SCH (08:01)
[2020-02-01] MEDS: FUROSEMIDE 40 MG/4 ML VIAL IV SCH (08:01)
[2020-02-01] MEDS: POTASSIUM CHLORIDE 20 MEQ TABLET PO PRN ×2 (08:02→10:30)
[2020-02-01] MEDS: POLYETHYLENE GLYCOL POWDER 17 GM PACK PO SCH (08:02)
[2020-02-01] MEDS: ISOSORBIDE MONONITRATE 30 MG TABLET PO SCH (08:02)
[2020-02-01] MEDS: carvediloL 6.25 MG TABLET PO SCH (08:02)
[2020-02-01] MEDS: ASCORBIC ACID 500 MG TABLET PO SCH (08:02)
[2020-02-01] MEDS: PANTOPRAZOLE 40 MG TABLET PO SCH (08:02)
[2020-02-01] MEDS: CHLORHEXIDINE 0.12% ORAL RINSE 60 ML BOTTLE SWISH/SPIT SCH (08:02)
[2020-02-01] MEDS: FERROUS SULFATE 325 MG TABLET PO SCH (08:02)
[2020-02-01 08:13] VITALS: BP 121/60
[2020-02-01] MEDS: LEVOFLOXACIN INJ 250 MG in PREMIX 1 EACH IV SCH (13:31)
== END 2020-02-01 15:08 | disposition home health service (06) | DRG 233 ==
LOC: N.ED 08:42 → N.EDINP 10:22 → N.TELES 10:53 → N.TELEN 01-19 16:40 → N.ICU 01-21 16:09 → N.CVR 01-22 12:16 → N.ICU 01-24 16:10 → N.TELES 01-29 10:02
PROVIDERS: ADMIT Internal Medicine Cardiovascular Disease
PROC: CLCCHCL (ICD-10-PCS; 2020-01-18 12:15)
PROC: [UNRECOGNIZED PROCEDURE] (2020-01-22 06:45)

== ENCOUNTER 2020-04-21 16:03 | Observation (INO) ==
[2020-04-21] MEDS ORDERED: FUROSEMIDE 40 MG/4 ML VIAL IV STA (17:21)
[2020-04-21] MEDS ORDERED: ALBUTEROL/IPRATROPIUM 3 ML NEB RESP TX STA (17:21)
[2020-04-21 17:43] LABS: Basophils # 0.1 10*3/uL (0.0-0.2); Basophils % 0.6 % (0.0-0.8); Eosinophils % 0.3 % (0.00-10.9); Hemoglobin 9.8 GM/DL (14.0-18.0); Immature Granulocytes % 0.4 %; Immature Granulocytes Absolute 0.03 #; Lymphocytes # 0.9 10*3/uL (1.4-4.0); Lymphocytes % 11.8 % (21.2-54.2); Mean Corpuscular HGB Conc 31.6 GM/DL (32-36); Mean Corpuscular Volume 87.1 FL (87-102); Mean Platelet Volume 9.8 FL (9.6-12.0); Monocytes % 4.3 % (1.7-12.7); Neutrophils % 82.6 % (38.7-73.9); Platelet Count 184 T/CUMM (130-400); Red Blood Count 3.56 MC/CUMM (3.8-5.5); Red Cell Distribution Width 16.8 % (9.3-17.3); White Blood Count 7.7 T/CUMM (4-12)
[2020-04-21 17:51] LABS: Alanine Aminotransferase 37 U/L (16-61); Albumin 3.1 G/DL (3.4-5.0); Alkaline Phosphatase 202 U/L (45-117); Aspartate Amino Transferase 48 U/L (0-37); Blood Urea Nitrogen 20 MG/DL (7-18); Calcium 8.7 MG/DL (8.5-10.1); Estimated Glom Filtration Rate 50 ML/MIN; Ferritin 433.8 ng/ml (26-388); Glucose 124 MG/DL (74-106); Total Protein 8.1 G/DL (6.4-8.3)
[2020-04-21 17:52] LABS: INR 1.1; Partial Thromboplastin Time 40.5 SECS (23.9-33.8)
[2020-04-21 18:02] LABS: Troponin I 0.535 NG/ML (0.00-0.045)
[2020-04-21 19:09] LABS: Apearance,Urine CLEAR (Clear); Bilirubin,Urine Negative (Negative); Blood, Urine Negative (Negative); Glucose,Urine (UA) Negative (Negative); Ketones,Urine Negative (Negative); Mucus,Urine Occasional /LPF (Occasional); Nitrite,Urine Negative (Negative); Protein,Urine 100 MG/DL; RBC,Urine 1 /HPF (0-4); Squamous Epithelial Cell,Urine Occasional /HPF (0-10); Urine Color Yellow (Yellow); Urine Specific Gravity 1.011 (1.001-1.035); Urine Urobilinogen < 2.0 EU/DL (0.2-1.0); WBC,Urine 1 /HPF (0-6)
[2020-04-21 19:12] LABS: Barbiturates Screen,Urine Negative (Negative); Benzodiazepines Screen,Urine Negative (Negative); Cannabinoid Screen,Urine Negative (Negative); Opiate Screen,Urine Negative (Negative); Phencyclidine Screen,Urine Negative (Negative)
[2020-04-21] MEDS ORDERED: ACETAMINOPHEN 325 MG TABLET PO PRN (19:47)
[2020-04-21] MEDS ORDERED: ONDANSETRON 4 MG/2 ML VIAL IV PRN (19:47)
[2020-04-21] MEDS ORDERED: ALBUTEROL/IPRATROPIUM 3 ML NEB RESP TX PRN (21:04)
[2020-04-21] MEDS: FUROSEMIDE 40 MG/4 ML VIAL IV SCH (21:53)
[2020-04-22 06:20] LABS: Basophils # 0.1 10*3/uL (0.0-0.2); Basophils % 0.8 % (0.0-0.8); Eosinophils % 0.6 % (0.00-10.9); Hematocrit 29.1 VOL% (42.0-52.0); Hemoglobin 9.4 GM/DL (14.0-18.0); Immature Granulocytes % 0.3 %; Immature Granulocytes Absolute 0.02 #; Lymphocytes % 16.4 % (21.2-54.2); Mean Corpuscular HGB Conc 32.3 GM/DL (32-36); Mean Corpuscular Volume 86.9 FL (87-102); Mean Platelet Volume 9.3 FL (9.6-12.0); Neutrophils % 75.9 % (38.7-73.9); Platelet Count 173 T/CUMM (130-400); Red Blood Count 3.35 MC/CUMM (3.8-5.5); White Blood Count 6.4 T/CUMM (4-12)
[2020-04-22 06:32] LABS: Albumin 3.2 G/DL (3.4-5.0); Bilirubin,Total 2.2 MG/DL (0.2-1.0); Osmolality,Calculated 284.3 MOS/KG (273-304); Total Protein 7.8 G/DL (6.4-8.3)
[2020-04-22] MEDS ORDERED: ASPIRIN EC 325 MG TABLET PO SCH (09:00)
[2020-04-22] MEDS: APIXABAN 2.5 MG TABLET PO SCH ×2 (09:01→21:58)
[2020-04-22] MEDS: METOPROLOL TARTRATE 25 MG TABLET PO SCH ×2 (09:01→21:58)
[2020-04-22] MEDS: PANTOPRAZOLE 40 MG TABLET PO SCH (09:01)
[2020-04-22] MEDS: FUROSEMIDE 40 MG/4 ML VIAL IV SCH ×2 (09:09→21:57)
[2020-04-22] MEDS: hydrALAZINE 25 MG TABLET PO SCH ×2 (12:23→16:16)
[2020-04-22] MEDS: ISOSORBIDE MONONITRATE 30 MG TABLET PO SCH (12:23)
[2020-04-22] MEDS: AZITHROMYCIN 250 MG TABLET PO SCH (16:16)
[2020-04-22] MEDS: methylPREDNISolone SOD SUC 125 MG/2 ML VIAL IV SCH (16:16)
[2020-04-22] MEDS ORDERED: metOLazone 5 MG TABLET PO SCH ×2 (17:30→20:30)
[2020-04-22] MEDS ORDERED: POTASSIUM CHLORIDE 20 MEQ TABLET PO PRN (17:54)
[2020-04-22] MEDS ORDERED: GLUCAGON 1 MG VIAL IM PRN (17:54)
[2020-04-22] MEDS ORDERED: MAGNESIUM SULF RIDER 2 GM in PREMIX 1 EACH IV PRN (17:54)
[2020-04-22] MEDS ORDERED: MAGNESIUM SULF RIDER 4 GM in PREMIX 1 EACH IV PRN (17:54)
[2020-04-22] MEDS ORDERED: DEXTROSE 10% 250 ML BAG IV PRN (17:54)
[2020-04-22] MEDS ORDERED: POTASSIUM CHLORIDE RIDER 10 MEQ in PREMIX 1 EACH IV PRN (17:54)
[2020-04-22] MEDS: cefTRIAXone 1,000 MG in SYRINGE 1 EACH IV SCH (18:10)
[2020-04-22] MEDS: ATORVASTATIN 40 MG TABLET PO SCH (21:59)
[2020-04-22] MEDS: INSULIN LISPRO 100 UNIT/ML SUBCUT SCH (21:59)
[2020-04-23] MEDS: methylPREDNISolone SOD SUC 125 MG/2 ML VIAL IV SCH (02:24)
[2020-04-23 05:51] LABS: Basophils % 0.2 % (0.0-0.8); Hematocrit 32.9 VOL% (42.0-52.0); Hemoglobin 10.5 GM/DL (14.0-18.0); Immature Granulocytes % 0.5 %; Immature Granulocytes Absolute 0.02 #; Lymphocytes # 0.9 10*3/uL (1.4-4.0); Lymphocytes % 20.9 % (21.2-54.2); Mean Corpuscular HGB Conc 31.9 GM/DL (32-36); Mean Corpuscular Volume 86.6 FL (87-102); Mean Platelet Volume 9.5 FL (9.6-12.0); Monocytes % 2.7 % (1.7-12.7); Neutrophils % 75.7 % (38.7-73.9); Platelet Count 182 T/CUMM (130-400); Red Cell Distribution Width 16.6 % (9.3-17.3); White Blood Count 4.1 T/CUMM (4-12)
[2020-04-23 06:06] LABS: Calcium 8.7 MG/DL (8.5-10.1)
[2020-04-23] MEDS: INSULIN LISPRO 100 UNIT/ML SUBCUT SCH ×4 (08:14→20:46)
[2020-04-23] MEDS: FUROSEMIDE 40 MG/4 ML VIAL IV SCH (08:43)
[2020-04-23] MEDS: AZITHROMYCIN 250 MG TABLET PO SCH (08:43)
[2020-04-23] MEDS: hydrALAZINE 25 MG TABLET PO SCH ×3 (08:44→17:31)
[2020-04-23] MEDS: APIXABAN 2.5 MG TABLET PO SCH ×2 (08:44→20:47)
[2020-04-23] MEDS: METOPROLOL TARTRATE 25 MG TABLET PO SCH ×2 (08:44→20:47)
[2020-04-23] MEDS: PANTOPRAZOLE 40 MG TABLET PO SCH (08:44)
[2020-04-23] MEDS: ISOSORBIDE MONONITRATE 30 MG TABLET PO SCH (08:44)
[2020-04-23] MEDS: ASPIRIN EC 81 MG TABLET PO SCH (09:46)
[2020-04-23] MEDS: FUROSEMIDE 40 MG TABLET PO SCH (17:31)
[2020-04-23] MEDS: cefTRIAXone 1,000 MG in SYRINGE 1 EACH IV SCH (17:31)
[2020-04-23] MEDS: ATORVASTATIN 40 MG TABLET PO SCH (20:47)
[2020-04-23] MEDS: methylPREDNISolone 4 MG TABLET PO SCH (20:47)
[2020-04-24] MEDS: INSULIN LISPRO 100 UNIT/ML SUBCUT SCH ×3 (08:38→16:54)
[2020-04-24] MEDS: APIXABAN 2.5 MG TABLET PO SCH (09:03)
[2020-04-24] MEDS: ISOSORBIDE MONONITRATE 30 MG TABLET PO SCH (09:03)
[2020-04-24] MEDS: METOPROLOL TARTRATE 25 MG TABLET PO SCH (09:03)
[2020-04-24] MEDS: methylPREDNISolone 4 MG TABLET PO SCH ×2 (09:03→13:20)
[2020-04-24] MEDS: ASPIRIN EC 81 MG TABLET PO SCH (09:03)
[2020-04-24] MEDS: FUROSEMIDE 40 MG TABLET PO SCH ×2 (09:03→16:54)
[2020-04-24] MEDS: PANTOPRAZOLE 40 MG TABLET PO SCH (09:03)
[2020-04-24] MEDS: hydrALAZINE 25 MG TABLET PO SCH ×3 (09:03→16:54)
[2020-04-24] MEDS: AZITHROMYCIN 250 MG TABLET PO SCH (09:03)
[2020-04-24 16:16] VITALS: BP 152/92
== END 2020-04-24 18:24 | disposition home health service (06) ==
LOC: EDUNIT# → EDBD → N.ED 16:03 → INTOOBSV 19:44 → N.EDINP 19:44 → N.TELEN 20:11
PROVIDERS: ADMIT Family Medicine; ATTEND Family Medicine

== ENCOUNTER 2020-07-26 11:26 | Inpatient (IN) ==
[2020-07-26] MEDS ORDERED: ASPIRIN 325 MG TABLET PO STA (12:02)
[2020-07-26] MEDS ORDERED: NITROGLYCERIN SL 0.4 MG TABLET SL PRN (12:02)
[2020-07-26 12:21] LABS: Basophils % 0.5 % (0.0-0.8); Eosinophils % 0.5 % (0.00-10.9); Hematocrit 43.5 VOL% (42.0-52.0); Hemoglobin 14.4 GM/DL (14.0-18.0); Immature Granulocytes % 0.3 %; Immature Granulocytes Absolute 0.01 #; Lymphocytes % 25.2 % (21.2-54.2); Mean Corpuscular HGB Conc 33.1 GM/DL (32-36); Mean Corpuscular Volume 87.7 FL (87-102); Mean Platelet Volume 10.4 FL (9.6-12.0); Monocytes % 7.5 % (1.7-12.7); NRBC # 0.02 10*3/uL; Platelet Count 133 T/CUMM (130-400); Red Blood Count 4.96 MC/CUMM (3.8-5.5); Red Cell Distribution Width 17.4 % (9.3-17.3); White Blood Count 3.9 T/CUMM (4-12)
[2020-07-26 13:00] LABS: Albumin 3.4 G/DL (3.4-5.0); Calcium 9.2 MG/DL (8.5-10.1); Osmolality,Calculated 288.4 MOS/KG (273-304); Total Protein 7.3 G/DL (6.4-8.3)
[2020-07-26] MEDS ORDERED: FUROSEMIDE 40 MG/4 ML VIAL IV STA (13:30)
[2020-07-26] MEDS ORDERED: MAGNESIUM SULF RIDER 4 GM in PREMIX 1 EACH IV PRN (13:49)
[2020-07-26] MEDS ORDERED: POTASSIUM CHLORIDE 20 MEQ TABLET PO PRN (13:49)
[2020-07-26] MEDS ORDERED: MAGNESIUM SULF RIDER 2 GM in PREMIX 1 EACH IV PRN (13:49)
[2020-07-26] MEDS ORDERED: ZALEPLON 5 MG CAPSULE PO PRN (13:49)
[2020-07-26] MEDS ORDERED: ALBUTEROL/IPRATROPIUM 3 ML NEB RESP TX PRN (13:52)
[2020-07-26 17:16] LABS: CKMB % 2.6 %
[2020-07-26 17:17] LABS: Troponin I 10.2 NG/ML (0.00-0.045)
[2020-07-26] MEDS: FUROSEMIDE 40 MG/4 ML VIAL IV SCH (18:48)
[2020-07-26] MEDS: ALBUTEROL/IPRATROPIUM 3 ML NEB RESP TX SCH (19:36)
[2020-07-26] MEDS: APIXABAN 2.5 MG TABLET PO SCH (20:04)
[2020-07-26] MEDS: METOPROLOL TARTRATE 50 MG TABLET PO SCH (20:04)
[2020-07-26] MEDS: ATORVASTATIN 40 MG TABLET PO SCH (20:04)
[2020-07-26] MEDS ORDERED: FUROSEMIDE 40 MG TABLET PO SCH (21:00)
[2020-07-26] MEDS ORDERED: METOPROLOL TARTRATE 25 MG TABLET PO SCH (21:00)
[2020-07-26 23:13] LABS: CKMB % 3.3 %
[2020-07-26 23:16] LABS: Troponin I 11.5 NG/ML (0.00-0.045)
[2020-07-27] MEDS: ALBUTEROL/IPRATROPIUM 3 ML NEB RESP TX SCH ×4 (00:24→19:42)
[2020-07-27 06:13] LABS: Calcium 8.6 MG/DL (8.5-10.1); Osmolality,Calculated 291.3 MOS/KG (273-304)
[2020-07-27 06:16] LABS: Risk Ratio 3.11; VLDL CHOLESTEROL 17.6 MG/DL
[2020-07-27 06:27] LABS: Free T4 (Free Thyroxine) 1.32 NG/DL (0.76-1.46); Thyroid Stimulating Hormone 1.59 uIU/ml (0.358-3.74)
[2020-07-27] MEDS: POTASSIUM CHLORIDE 20 MEQ TABLET PO SCH (08:51)
[2020-07-27] MEDS: METOPROLOL TARTRATE 50 MG TABLET PO SCH ×2 (08:51→20:18)
[2020-07-27] MEDS: ISOSORBIDE MONONITRATE 30 MG TABLET PO SCH (08:51)
[2020-07-27] MEDS: PANTOPRAZOLE 40 MG TABLET PO SCH (08:52)
[2020-07-27] MEDS: SPIRONOLACTONE 25 MG TABLET PO SCH (08:52)
[2020-07-27] MEDS: FUROSEMIDE 40 MG/4 ML VIAL IV SCH ×2 (08:52→16:26)
[2020-07-27] MEDS: APIXABAN 2.5 MG TABLET PO SCH ×2 (08:52→20:18)
[2020-07-27] MEDS ORDERED: ASPIRIN EC 325 MG TABLET PO SCH (09:00)
[2020-07-27] MEDS: ONDANSETRON 4 MG/2 ML VIAL IV PRN (13:05)
[2020-07-27] MEDS: ATORVASTATIN 40 MG TABLET PO SCH (20:18)
[2020-07-27 20:52] LABS: Bilirubin,Urine Negative (Negative); Blood, Urine Small mg/dL (Negative); Glucose,Urine (UA) Negative (Negative); Ketones,Urine Negative (Negative); Nitrite,Urine Negative (Negative); Protein,Urine Negative; RBC,Urine 1 /HPF (0-4); Squamous Epithelial Cell,Urine Occasional /HPF (0-10); Urine Appearance CLEAR (Clear); Urine Color Yellow (Yellow); Urine Specific Gravity 1.006 (1.001-1.035); Urine Urobilinogen < 2.0 EU/DL (0.2-1.0); WBC,Urine 2 /HPF (0-6)
[2020-07-28] MEDS: ALBUTEROL/IPRATROPIUM 3 ML NEB RESP TX SCH ×4 (00:34→20:56)
[2020-07-28] MEDS ORDERED: METOPROLOL TARTRATE 5 MG/5 ML VIAL IV ONE (03:48)
[2020-07-28 06:40] LABS: Calcium 8.5 MG/DL (8.5-10.1); Osmolality,Calculated 287.4 MOS/KG (273-304)
[2020-07-28] MEDS ORDERED: CLOPIDOGREL 300 MG TABLET PO ONE (07:51)
[2020-07-28] MEDS: FUROSEMIDE 40 MG/4 ML VIAL IV SCH ×2 (08:27→15:03)
[2020-07-28] MEDS: APIXABAN 2.5 MG TABLET PO SCH ×2 (08:28→22:02)
[2020-07-28] MEDS: ISOSORBIDE MONONITRATE 30 MG TABLET PO SCH (08:28)
[2020-07-28] MEDS: PANTOPRAZOLE 40 MG TABLET PO SCH (08:28)
[2020-07-28] MEDS: METOPROLOL TARTRATE 50 MG TABLET PO SCH ×2 (08:28→22:01)
[2020-07-28] MEDS: POTASSIUM CHLORIDE 20 MEQ TABLET PO SCH (08:28)
[2020-07-28] MEDS: SPIRONOLACTONE 25 MG TABLET PO SCH (08:28)
[2020-07-28] MEDS ORDERED: BISACODYL 10 MG SUPP RECTAL ONE (13:36)
[2020-07-28] MEDS ORDERED: BISACODYL 10 MG SUPP RECTAL PRN (13:40)
[2020-07-28] MEDS ORDERED: GLUCAGON 1 MG VIAL IM PRN (13:47)
[2020-07-28] MEDS ORDERED: DEXTROSE 50% 25 GM/50 ML VIAL IV PRN (13:47)
[2020-07-28] MEDS: methylPREDNISolone SOD SUC 40 MG/1 ML VIAL IV SCH (14:55)
[2020-07-28] MEDS: cefTRIAXone 1,000 MG in SYRINGE 1 EACH IV SCH (14:55)
[2020-07-28] MEDS: INSULIN LISPRO 100 UNIT/ML SUBCUT SCH ×2 (16:04→22:03)
[2020-07-28] MEDS: ATORVASTATIN 40 MG TABLET PO SCH (22:02)
[2020-07-29] MEDS: ALBUTEROL/IPRATROPIUM 3 ML NEB RESP TX SCH ×4 (01:50→19:12)
[2020-07-29] MEDS: methylPREDNISolone SOD SUC 40 MG/1 ML VIAL IV SCH (02:59)
[2020-07-29 05:55] LABS: Hematocrit 37.2 VOL% (42.0-52.0); Hemoglobin 12.4 GM/DL (14.0-18.0); Immature Granulocytes % 0.4 %; Immature Granulocytes Absolute 0.01 #; Lymphocytes # 0.5 10*3/uL (1.4-4.0); Lymphocytes % 16.1 % (21.2-54.2); Mean Corpuscular HGB Conc 33.3 GM/DL (32-36); Mean Corpuscular Volume 87.9 FL (87-102); Mean Platelet Volume 10.4 FL (9.6-12.0); Monocytes % 3.6 % (1.7-12.7); Neutrophils % 79.9 % (38.7-73.9); Platelet Count 124 T/CUMM (130-400); Red Blood Count 4.23 MC/CUMM (3.8-5.5); Red Cell Distribution Width 17.7 % (9.3-17.3); White Blood Count 2.8 T/CUMM (4-12)
[2020-07-29 06:34] LABS: Bilirubin,Direct 0.65 MG/DL (0.0-0.20); Bilirubin,Indirect 1.5 MG/DL (0.0-1.0); Bilirubin,Total 2.1 MG/DL (0.2-1.0); Calcium 8.7 MG/DL (8.5-10.1); Osmolality,Calculated 283.1 MOS/KG (273-304); Total Protein 7.3 G/DL (6.4-8.3)
[2020-07-29] MEDS: ISOSORBIDE MONONITRATE 30 MG TABLET PO SCH (08:41)
[2020-07-29] MEDS: SPIRONOLACTONE 25 MG TABLET PO SCH (08:42)
[2020-07-29] MEDS: MULTIVITAMIN (CENTRUM) TABLET PO SCH (08:42)
[2020-07-29] MEDS: METOPROLOL TARTRATE 50 MG TABLET PO SCH ×2 (08:42→20:53)
[2020-07-29] MEDS: APIXABAN 2.5 MG TABLET PO SCH ×2 (08:42→20:52)
[2020-07-29] MEDS: PANTOPRAZOLE 40 MG TABLET PO SCH (08:42)
[2020-07-29] MEDS: CLOPIDOGREL 75 MG TABLET PO SCH (08:42)
[2020-07-29] MEDS: INSULIN LISPRO 100 UNIT/ML SUBCUT SCH ×2 (08:43→13:12)
[2020-07-29] MEDS: POTASSIUM CHLORIDE 20 MEQ TABLET PO SCH (08:43)
[2020-07-29] MEDS: FUROSEMIDE 40 MG/4 ML VIAL IV SCH (08:43)
[2020-07-29] MEDS: cefTRIAXone 1,000 MG in SYRINGE 1 EACH IV SCH (14:41)
[2020-07-29] MEDS: ATORVASTATIN 40 MG TABLET PO SCH (20:52)
[2020-07-29] MEDS: RANOLAZINE 500 MG TABLET PO SCH (20:52)
[2020-07-29] MEDS: ONDANSETRON 4 MG/2 ML VIAL IV PRN (20:58)
[2020-07-30] MEDS: ALBUTEROL/IPRATROPIUM 3 ML NEB RESP TX SCH ×4 (00:07→21:00)
[2020-07-30 06:47] LABS: Hematocrit 38.4 VOL% (42.0-52.0); Hemoglobin 12.6 GM/DL (14.0-18.0); Immature Granulocytes % 0.2 %; Immature Granulocytes Absolute 0.01 #; Lymphocytes # 0.5 10*3/uL (1.4-4.0); Lymphocytes % 8.8 % (21.2-54.2); Mean Corpuscular HGB Conc 32.8 GM/DL (32-36); Mean Corpuscular Volume 87.3 FL (87-102); Mean Platelet Volume 10.3 FL (9.6-12.0); Monocytes % 5.9 % (1.7-12.7); NRBC # 0.02 10*3/uL; Neutrophils % 85.1 % (38.7-73.9); Platelet Count 126 T/CUMM (130-400); Red Cell Distribution Width 17.5 % (9.3-17.3); White Blood Count 5.5 T/CUMM (4-12)
[2020-07-30 07:19] LABS: Calcium 8.9 MG/DL (8.5-10.1); Osmolality,Calculated 282.2 MOS/KG (273-304)
[2020-07-30] MEDS: RANOLAZINE 500 MG TABLET PO SCH ×2 (09:34→21:12)
[2020-07-30] MEDS: MULTIVITAMIN (CENTRUM) TABLET PO SCH (09:34)
[2020-07-30] MEDS: CLOPIDOGREL 75 MG TABLET PO SCH (09:34)
[2020-07-30] MEDS: METOPROLOL TARTRATE 50 MG TABLET PO SCH ×2 (09:34→21:13)
[2020-07-30] MEDS: ISOSORBIDE MONONITRATE 60 MG TABLET PO SCH (09:34)
[2020-07-30] MEDS: PANTOPRAZOLE 40 MG TABLET PO SCH (09:34)
[2020-07-30] MEDS: FUROSEMIDE 40 MG/4 ML VIAL IV SCH (09:35)
[2020-07-30] MEDS: APIXABAN 2.5 MG TABLET PO SCH ×2 (09:35→21:13)
[2020-07-30] MEDS: POTASSIUM CHLORIDE 20 MEQ TABLET PO SCH (09:35)
[2020-07-30] MEDS: methylPREDNISolone SOD SUC 40 MG/1 ML VIAL IV SCH (09:37)
[2020-07-30] MEDS: hydrALAZINE 25 MG TABLET PO SCH ×2 (09:39→21:13)
[2020-07-30] MEDS: ONDANSETRON 4 MG/2 ML VIAL IV PRN (09:42)
[2020-07-30] MEDS ORDERED: PROMETHAZINE INJ 12.5 MG in SODIUM CHLORIDE 0.9% 50 ML IV PRN (10:35)
[2020-07-30] MEDS: cefTRIAXone 1,000 MG in SYRINGE 1 EACH IV SCH (14:03)
[2020-07-30] MEDS: ATORVASTATIN 40 MG TABLET PO SCH (21:13)
[2020-07-31] MEDS: ALBUTEROL/IPRATROPIUM 3 ML NEB RESP TX SCH ×3 (00:18→13:26)
[2020-07-31 06:02] LABS: Hematocrit 38.4 VOL% (42.0-52.0); Immature Granulocytes % 0.4 %; Immature Granulocytes Absolute 0.02 #; Lymphocytes # 0.5 10*3/uL (1.4-4.0); Lymphocytes % 8.3 % (21.2-54.2); Mean Corpuscular HGB Conc 33.9 GM/DL (32-36); Mean Platelet Volume 10.3 FL (9.6-12.0); Monocytes % 5.5 % (1.7-12.7); Neutrophils % 85.8 % (38.7-73.9); Platelet Count 110 T/CUMM (130-400); Red Blood Count 4.52 MC/CUMM (3.8-5.5); Red Cell Distribution Width 17.5 % (9.3-17.3); White Blood Count 5.4 T/CUMM (4-12)
[2020-07-31 06:37] LABS: Calcium 8.4 MG/DL (8.5-10.1); Osmolality,Calculated 288.2 MOS/KG (273-304)
[2020-07-31] MEDS: methylPREDNISolone SOD SUC 40 MG/1 ML VIAL IV SCH (08:52)
[2020-07-31] MEDS: RANOLAZINE 500 MG TABLET PO SCH (08:52)
[2020-07-31] MEDS: METOPROLOL TARTRATE 50 MG TABLET PO SCH (08:52)
[2020-07-31] MEDS: ISOSORBIDE MONONITRATE 60 MG TABLET PO SCH (08:52)
[2020-07-31] MEDS: PANTOPRAZOLE 40 MG TABLET PO SCH (08:52)
[2020-07-31] MEDS: CLOPIDOGREL 75 MG TABLET PO SCH (08:52)
[2020-07-31] MEDS: hydrALAZINE 25 MG TABLET PO SCH (08:52)
[2020-07-31] MEDS: APIXABAN 2.5 MG TABLET PO SCH (08:52)
[2020-07-31] MEDS: MULTIVITAMIN (CENTRUM) TABLET PO SCH (08:52)
[2020-07-31] MEDS: FUROSEMIDE 40 MG/4 ML VIAL IV SCH (08:54)
[2020-07-31] MEDS: POTASSIUM CHLORIDE 20 MEQ TABLET PO SCH (08:55)
[2020-07-31 12:15] VITALS: BP 117/71
[2020-07-31] MEDS: cefTRIAXone 1,000 MG in SYRINGE 1 EACH IV SCH (14:01)
== END 2020-07-31 16:33 | disposition home or self-care (01) | DRG 280 ==
LOC: N.ED 11:26 → N.EDINP 13:49 → N.TELEN 15:05
PROVIDERS: ADMIT Family Medicine; ATTEND Family Medicine

== ENCOUNTER 2020-08-10 09:12 | Inpatient (IN) ==
[2020-08-10 10:15] LABS: Basophils % 0.1 % (0.0-0.8); Hemoglobin 14.5 GM/DL (14.0-18.0); Immature Granulocytes % 0.6 %; Immature Granulocytes Absolute 0.05 #; Lymphocytes # 0.2 10*3/uL (1.4-4.0); Lymphocytes % 2.7 % (21.2-54.2); Mean Corpuscular Volume 88.5 FL (87-102); Mean Platelet Volume 10.5 FL (9.6-12.0); Monocytes % 4.6 % (1.7-12.7); NRBC # 0.02 10*3/uL; Platelet Count 69 T/CUMM (130-400); Red Blood Count 4.97 MC/CUMM (3.8-5.5); Red Cell Distribution Width 19.9 % (9.3-17.3)
[2020-08-10] MEDS ORDERED: cefTRIAXone 1,000 MG in SODIUM CHLORIDE 0.9% 100 ML IV STA (10:20)
[2020-08-10] MEDS ORDERED: FUROSEMIDE 100 MG/10 ML VIAL IV STA (10:20)
[2020-08-10 10:26] LABS: PT Patient Result 20.5 SECS (9.8-11.9)
[2020-08-10 10:37] LABS: Albumin 3.2 G/DL (3.4-5.0); Bilirubin,Total 4.7 MG/DL (0.2-1.0); Calcium 9.9 MG/DL (8.5-10.1); Osmolality,Calculated 293.2 MOS/KG (273-304); Total Protein 7.2 G/DL (6.4-8.3)
[2020-08-10] MEDS ORDERED: DEXTROSE 50% 25 GM/50 ML VIAL IV ONE (10:45)
[2020-08-10] MEDS ORDERED: CALCIUM GLUCONATE 1,000 MG in SODIUM CHLORIDE 0.9% 100 ML IV ONE ×2 (10:49→16:32)
[2020-08-10] MEDS ORDERED: ALBUTEROL 2.5 MG/3 ML NEB RESP TX STA (10:49)
[2020-08-10] MEDS ORDERED: DEXTROSE 50% 25 GM/50 ML VIAL IV STA (10:50)
[2020-08-10] MEDS ORDERED: INSULIN REGULAR 100 UNIT/ML IV ONE (10:51)
[2020-08-10] MEDS ORDERED: SODIUM BICARBONATE 50 MEQ/50 ML VIAL IV ONE ×4 (10:56→21:26)
[2020-08-10] MEDS ORDERED: CALCIUM GLUCONATE 1,000 MG/10 ML VIAL IV ONE (10:57)
[2020-08-10 11:19] LABS: ABG Base Excess -15.4 MMOL/L (-2.5-2.5); ABG Oxygen Saturation 95.7 % (95-100); ABG PH 7.284 (7.35-7.45); ABG PO2 95.1 MM HG (80-95); ABG TCO2 8.8 MMOL/L (23-27)
[2020-08-10 11:19] LABS: Band Neutrophils 1 % (0-10); Lymphocytes 1 % (20-55); Polychromasia Slight; Segmented Neutrophils 96 % (50-85); Total Cells Counted 100
[2020-08-10 11:20] LABS: Acanthocytes 2+; Hypochromasia 2+; Platelet Estimate Decreased; Schistocytes Few; Target Cells Few
[2020-08-10 11:20] LABS: ABG PCO2 20.9 MM HG (35-48)
[2020-08-10] MEDS: SODIUM BICARB INJ 100 MEQ in DEXTROSE 5% 1,000 ML IV SCH ×2 (11:24→14:00)
[2020-08-10] MEDS ORDERED: SODIUM CHLORIDE 0.9% 1,000 ML IV SCH (11:30)
[2020-08-10] MEDS ORDERED: NITROGLYCERIN SL 0.4 MG TABLET SL PRN (11:33)
[2020-08-10] MEDS ORDERED: ALBUTEROL 2.5 MG/3 ML NEB RESP TX ONE (12:00)
[2020-08-10] MEDS: ONDANSETRON 4 MG/2 ML VIAL IV PRN ×2 (12:07→19:28)
[2020-08-10] MEDS ORDERED: LIDOCAINE 2% TOP JELLY 20 ML VIAL INTRAURETH ONE (13:22)
[2020-08-10 16:00] LABS: Calcium 9.4 MG/DL (8.5-10.1); Osmolality,Calculated 302.8 MOS/KG (273-304)
[2020-08-10] MEDS ORDERED: SODIUM POLYSTYRENE SULFATE 15 GM/60 ML BOTTLE PO ONE (16:32)
[2020-08-10] MEDS: SODIUM BICARB INJ 150 MEQ in DEXTROSE 5% 1,000 ML IV SCH (17:11)
[2020-08-10] MEDS ORDERED: METOCLOPRAMIDE 10 MG/2 ML VIAL IV ONE (19:24)
[2020-08-10 20:41] LABS: Calcium 9.6 MG/DL (8.5-10.1); Osmolality,Calculated 300.1 MOS/KG (273-304)
[2020-08-10] MEDS ORDERED: APIXABAN 2.5 MG TABLET PO SCH (21:00)
[2020-08-10] MEDS ORDERED: SODIUM POLYSTYRENE SULFATE 15 GM/60 ML BOTTLE RECTAL ONE (21:28)
[2020-08-10] MEDS: METOPROLOL TARTRATE 25 MG TABLET PO SCH (21:53)
[2020-08-11] MEDS: SODIUM BICARB INJ 150 MEQ in DEXTROSE 5% 1,000 ML IV SCH ×2 (05:50→16:45)
[2020-08-11 06:32] LABS: Basophils % 0.2 % (0.0-0.8); Hematocrit 43.1 VOL% (42.0-52.0); Hemoglobin 13.6 GM/DL (14.0-18.0); Immature Granulocytes % 0.6 %; Immature Granulocytes Absolute 0.07 #; Lymphocytes # 0.3 10*3/uL (1.4-4.0); Mean Corpuscular HGB Conc 31.6 GM/DL (32-36); Mean Corpuscular Volume 92.1 FL (87-102); Monocytes % 4.5 % (1.7-12.7); NRBC # 0.03 10*3/uL; Neutrophils % 92.7 % (38.7-73.9); Platelet Count 56 T/CUMM (130-400); Red Blood Count 4.68 MC/CUMM (3.8-5.5); Red Cell Distribution Width 20.5 % (9.3-17.3); White Blood Count 12.7 T/CUMM (4-12)
[2020-08-11 06:51] LABS: Hypochromasia Slight; Lymphocytes 4 % (20-55); Platelet Estimate Decreased; Segmented Neutrophils 95 % (50-85); Total Cells Counted 100
[2020-08-11 08:00] LABS: Albumin 2.7 G/DL (3.4-5.0); Bilirubin,Total 5.3 MG/DL (0.2-1.0); Calcium 9.3 MG/DL (8.5-10.1); Total Protein 6.7 G/DL (6.4-8.3)
[2020-08-11] MEDS ORDERED: ASPIRIN EC 325 MG TABLET PO SCH (09:00)
[2020-08-11] MEDS: PANTOPRAZOLE 40 MG TABLET PO SCH (10:10)
[2020-08-11] MEDS: LACTULOSE 20 GM/30 ML UDCUP PO SCH ×4 (10:13→22:25)
[2020-08-11] MEDS: METOPROLOL TARTRATE 25 MG TABLET PO SCH ×3 (11:04→22:26)
[2020-08-11] MEDS: ISOSORBIDE MONONITRATE 30 MG TABLET PO SCH (11:04)
[2020-08-11] MEDS ORDERED: METOPROLOL TARTRATE 25 MG TABLET PO ONE (11:29)
[2020-08-11] MEDS ORDERED: HYDROmorphone 2 MG/1 ML VIAL IV ONE (14:34)
[2020-08-11 17:17] LABS: Hepatitis B Core IgM Quant 0.19 Index; Hepatitis B Surface Ag Quant < 0.10 Index; Hepatitis B Surface Ag Result Negative (Negative); Hepatitis C Virus Ab Quant 0.06 Index; Hepatitis C Virus Ab Result Negative (Negative)
[2020-08-12] MEDS: LACTULOSE 20 GM/30 ML UDCUP PO SCH ×4 (03:17→21:08)
[2020-08-12] MEDS: SODIUM BICARB INJ 150 MEQ in DEXTROSE 5% 1,000 ML IV SCH ×2 (03:17→20:09)
[2020-08-12 04:33] LABS: Basophils % 0.1 % (0.0-0.8); Hematocrit 37.4 VOL% (42.0-52.0); Hemoglobin 12.8 GM/DL (14.0-18.0); Immature Granulocytes % 0.4 %; Immature Granulocytes Absolute 0.04 #; Lymphocytes # 0.3 10*3/uL (1.4-4.0); Lymphocytes % 3.4 % (21.2-54.2); Mean Corpuscular HGB Conc 34.2 GM/DL (32-36); Mean Corpuscular Volume 85.4 FL (87-102); Monocytes % 3.6 % (1.7-12.7); NRBC # 0.03 10*3/uL; Neutrophils % 92.5 % (38.7-73.9); Red Blood Count 4.38 MC/CUMM (3.8-5.5); Red Cell Distribution Width 19.4 % (9.3-17.3); White Blood Count 9.5 T/CUMM (4-12)
[2020-08-12 04:35] LABS: Platelet Count 32 T/CUMM (130-400)
[2020-08-12 04:55] LABS: Hypochromasia 1+; Lymphocytes 2 % (20-55); Platelet Estimate Decreased; Segmented Neutrophils 95 % (50-85); Total Cells Counted 100
[2020-08-12 04:56] LABS: Ovalocytes Slight; Target Cells Few
[2020-08-12 05:00] LABS: Calcium 8.3 MG/DL (8.5-10.1); Osmolality,Calculated 299.8 MOS/KG (273-304)
[2020-08-12] MEDS: ISOSORBIDE MONONITRATE 30 MG TABLET PO SCH (09:29)
[2020-08-12] MEDS: PANTOPRAZOLE 40 MG TABLET PO SCH (09:29)
[2020-08-12] MEDS: METOPROLOL TARTRATE 25 MG TABLET PO SCH ×2 (09:30→21:08)
[2020-08-12] MEDS ORDERED: HEPARIN 10,000 UNIT/10 ML VIAL ONE (17:46)
[2020-08-12] MEDS ORDERED: EPOETIN ALFA-EPBX 10,000 UNIT/ML VIAL ONE (17:47)
[2020-08-13] MEDS: LACTULOSE 20 GM/30 ML UDCUP PO SCH ×4 (03:40→21:25)
[2020-08-13 04:16] LABS: Basophils % 0.1 % (0.0-0.8); Calcium 8.6 MG/DL (8.5-10.1); Hematocrit 37.2 VOL% (42.0-52.0); Hemoglobin 12.4 GM/DL (14.0-18.0); Immature Granulocytes % 0.6 %; Immature Granulocytes Absolute 0.05 #; Lymphocytes # 0.4 10*3/uL (1.4-4.0); Lymphocytes % 5.3 % (21.2-54.2); Mean Corpuscular HGB Conc 33.3 GM/DL (32-36); Mean Corpuscular Volume 87.5 FL (87-102); Monocytes % 3.9 % (1.7-12.7); Neutrophils % 90.1 % (38.7-73.9); Osmolality,Calculated 285.1 MOS/KG (273-304); Red Blood Count 4.25 MC/CUMM (3.8-5.5); Red Cell Distribution Width 19.3 % (9.3-17.3); White Blood Count 8.4 T/CUMM (4-12)
[2020-08-13 04:45] LABS: Platelet Count 24 T/CUMM (130-400)
[2020-08-13 04:47] LABS: Hypochromasia 1+; Ovalocytes Slight; Platelet Estimate Decreased
[2020-08-13] MEDS: SODIUM BICARB INJ 150 MEQ in DEXTROSE 5% 1,000 ML IV SCH (07:36)
[2020-08-13] MEDS: ISOSORBIDE MONONITRATE 30 MG TABLET PO SCH (09:30)
[2020-08-13] MEDS: METOPROLOL TARTRATE 25 MG TABLET PO SCH ×2 (09:30→21:25)
[2020-08-13] MEDS ORDERED: GLUCAGON 1 MG VIAL IM PRN (15:48)
[2020-08-13] MEDS ORDERED: DEXTROSE 50% 25 GM/50 ML VIAL IV PRN (15:48)
[2020-08-14] MEDS: LACTULOSE 20 GM/30 ML UDCUP PO SCH ×4 (04:04→21:45)
[2020-08-14 08:02] LABS: Hematocrit 37.6 VOL% (42.0-52.0); Hemoglobin 12.8 GM/DL (14.0-18.0); Immature Granulocytes % 0.4 %; Immature Granulocytes Absolute 0.03 #; Lymphocytes # 0.4 10*3/uL (1.4-4.0); Lymphocytes % 4.7 % (21.2-54.2); Neutrophils % 88.9 % (38.7-73.9); Red Blood Count 4.37 MC/CUMM (3.8-5.5); Red Cell Distribution Width 19.6 % (9.3-17.3); White Blood Count 8.4 T/CUMM (4-12)
[2020-08-14 08:08] LABS: Platelet Count 21 T/CUMM (130-400)
[2020-08-14] MEDS: SODIUM BICARB INJ 150 MEQ in DEXTROSE 5% 1,000 ML IV SCH ×2 (08:14→18:19)
[2020-08-14 08:15] LABS: Calcium 8.8 MG/DL (8.5-10.1); Osmolality,Calculated 305.3 MOS/KG (273-304)
[2020-08-14] MEDS: METOPROLOL TARTRATE 25 MG TABLET PO SCH (08:15)
[2020-08-14] MEDS: ISOSORBIDE MONONITRATE 30 MG TABLET PO SCH (08:15)
[2020-08-14 08:30] LABS: Lymphocytes 4 % (20-55); Segmented Neutrophils 95 % (50-85); Total Cells Counted 100
[2020-08-14 08:31] LABS: Acanthocytes 1+; Burr Cells Few; Hypochromasia 1+
[2020-08-14 08:32] LABS: Anisocytosis 1+; Platelet Estimate Decreased; Target Cells Slight
[2020-08-14] MEDS ORDERED: SODIUM CHLORIDE 0.9% 1,000 ML IV PRN (16:47)
[2020-08-14] MEDS: cefTRIAXone 1,000 MG in SYRINGE 1 EACH IV SCH (17:32)
[2020-08-14 18:06] LABS: Basophils # 0.1 10*3/uL (0.0-0.2); Basophils % 0.6 % (0.0-0.8); Hematocrit 32.5 VOL% (42.0-52.0); Hemoglobin 10.7 GM/DL (14.0-18.0); Immature Granulocytes % 0.6 %; Immature Granulocytes Absolute 0.05 #; Lymphocytes # 0.3 10*3/uL (1.4-4.0); Lymphocytes % 3.7 % (21.2-54.2); Mean Corpuscular HGB Conc 32.9 GM/DL (32-36); Mean Corpuscular Volume 89.8 FL (87-102); NRBC # 0.03 10*3/uL; Neutrophils % 89.1 % (38.7-73.9); Platelet Count 49 T/CUMM (130-400); Red Blood Count 3.62 MC/CUMM (3.8-5.5); Red Cell Distribution Width 21.1 % (9.3-17.3); White Blood Count 8.6 T/CUMM (4-12)
[2020-08-14 18:41] LABS: Lymphocytes 4 % (20-55); Platelet Estimate Decreased; Segmented Neutrophils 93 % (50-85); Total Cells Counted 100
[2020-08-14 18:42] LABS: Microcytosis Slight; Polychromasia Slight
[2020-08-14 18:44] LABS: Hypochromasia 3+
[2020-08-15] MEDS: METOPROLOL TARTRATE 25 MG TABLET PO SCH ×3 (00:53→21:42)
[2020-08-15] MEDS: LACTULOSE 20 GM/30 ML UDCUP PO SCH ×4 (04:30→21:41)
[2020-08-15 06:00] LABS: Basophils % 0.1 % (0.0-0.8); Hematocrit 34.7 VOL% (42.0-52.0); Hemoglobin 11.9 GM/DL (14.0-18.0); Immature Granulocytes % 0.4 %; Immature Granulocytes Absolute 0.03 #; Lymphocytes # 0.4 10*3/uL (1.4-4.0); Lymphocytes % 4.8 % (21.2-54.2); Mean Corpuscular HGB Conc 34.3 GM/DL (32-36); Neutrophils % 88.7 % (38.7-73.9); Red Blood Count 4.08 MC/CUMM (3.8-5.5); Red Cell Distribution Width 19.3 % (9.3-17.3); White Blood Count 8.5 T/CUMM (4-12)
[2020-08-15 06:14] LABS: Calcium 9.1 MG/DL (8.5-10.1)
[2020-08-15 06:17] LABS: Albumin 2.3 G/DL (3.4-5.0); Bilirubin,Direct 3.18 MG/DL (0.0-0.20); Bilirubin,Indirect 1.8 MG/DL (0.0-1.0); Total Protein 6.3 G/DL (6.4-8.3)
[2020-08-15 06:20] LABS: Platelet Count 21 T/CUMM (130-400)
[2020-08-15 06:37] LABS: Anisocytosis 2+; Band Neutrophils 3 % (0-10); Hypochromasia 1+; Lymphocytes 7 % (20-55); Platelet Estimate Decreased; Segmented Neutrophils 84 % (50-85); Target Cells Few; Total Cells Counted 100
[2020-08-15 06:38] LABS: Macrocytosis 1+
[2020-08-15] MEDS ORDERED: HEPARIN 5,000 UNIT/1 ML VIAL ONE (09:07)
[2020-08-15] MEDS: ISOSORBIDE MONONITRATE 30 MG TABLET PO SCH (10:48)
[2020-08-15] MEDS ORDERED: SODIUM CHLORIDE 0.9% 1,000 ML IV PRN (12:06)
[2020-08-15] MEDS: cefTRIAXone 1,000 MG in SYRINGE 1 EACH IV SCH (16:50)
[2020-08-16] MEDS: LACTULOSE 20 GM/30 ML UDCUP PO SCH ×4 (05:02→18:01)
[2020-08-16] MEDS: SODIUM BICARB INJ 150 MEQ in DEXTROSE 5% 1,000 ML IV SCH ×2 (05:03→22:51)
[2020-08-16 06:16] LABS: Albumin 2.4 G/DL (3.4-5.0); Bilirubin,Direct 2.81 MG/DL (0.0-0.20); Bilirubin,Indirect 1.4 MG/DL (0.0-1.0); Bilirubin,Total 4.2 MG/DL (0.2-1.0); Total Protein 6.2 G/DL (6.4-8.3)
[2020-08-16 09:27] LABS: Hematocrit 31.4 VOL% (42.0-52.0); Hemoglobin 10.2 GM/DL (14.0-18.0); Immature Granulocytes % 0.4 %; Immature Granulocytes Absolute 0.02 #; Lymphocytes # 0.4 10*3/uL (1.4-4.0); Lymphocytes % 7.3 % (21.2-54.2); Mean Corpuscular HGB Conc 32.5 GM/DL (32-36); Mean Corpuscular Volume 88.2 FL (87-102); Mean Platelet Volume 10.6 FL (9.6-12.0); Monocytes % 8.6 % (1.7-12.7); Neutrophils % 83.7 % (38.7-73.9); Red Blood Count 3.56 MC/CUMM (3.8-5.5); Red Cell Distribution Width 20.1 % (9.3-17.3); White Blood Count 5.3 T/CUMM (4-12)
[2020-08-16 09:31] LABS: Platelet Count 51 T/CUMM (130-400)
[2020-08-16 09:54] LABS: INR 1.2; PT Patient Result 12.4 SECS (9.8-11.9)
[2020-08-16 09:55] LABS: Albumin 2.5 G/DL (3.4-5.0); Osmolality,Calculated 300.3 MOS/KG (273-304); Total Protein 6.2 G/DL (6.4-8.3)
[2020-08-16 10:00] LABS: Partial Thromboplastin Time > 211.8 SECS (23.9-33.8)
[2020-08-16 10:02] LABS: Hypochromasia 1+; Microcytosis 1+; Ovalocytes Slight
[2020-08-16 10:03] LABS: Platelet Estimate Decreased
[2020-08-16] MEDS: METOPROLOL TARTRATE 25 MG TABLET PO SCH ×2 (13:51→22:46)
[2020-08-16] MEDS: ISOSORBIDE MONONITRATE 30 MG TABLET PO SCH (13:51)
[2020-08-16] MEDS: cefTRIAXone 1,000 MG in SYRINGE 1 EACH IV SCH (16:54)
[2020-08-17] MEDS: LACTULOSE 20 GM/30 ML UDCUP PO SCH ×5 (00:02→21:36)
[2020-08-17] MEDS: METOPROLOL TARTRATE 25 MG TABLET PO SCH ×2 (09:24→21:37)
[2020-08-17] MEDS: ISOSORBIDE MONONITRATE 30 MG TABLET PO SCH (09:25)
[2020-08-17] MEDS: cefTRIAXone 1,000 MG VIAL IM SCH (21:37)
[2020-08-18] MEDS: LACTULOSE 20 GM/30 ML UDCUP PO SCH ×3 (04:03→21:49)
[2020-08-18 07:14] LABS: Basophils % 0.2 % (0.0-0.8); Hematocrit 32.3 VOL% (42.0-52.0); Hemoglobin 10.8 GM/DL (14.0-18.0); Immature Granulocytes % 0.2 %; Immature Granulocytes Absolute 0.01 #; Lymphocytes # 0.6 10*3/uL (1.4-4.0); Lymphocytes % 15.6 % (21.2-54.2); Mean Corpuscular HGB Conc 33.4 GM/DL (32-36); Mean Corpuscular Volume 88.5 FL (87-102); Monocytes % 10.2 % (1.7-12.7); Neutrophils % 73.8 % (38.7-73.9); Red Blood Count 3.65 MC/CUMM (3.8-5.5); Red Cell Distribution Width 20.6 % (9.3-17.3)
[2020-08-18 07:15] LABS: Platelet Count 35 T/CUMM (130-400)
[2020-08-18 07:23] LABS: Albumin 2.4 G/DL (3.4-5.0); Bilirubin,Total 3.5 MG/DL (0.2-1.0); Calcium 9.1 MG/DL (8.5-10.1); Osmolality,Calculated 296.5 MOS/KG (273-304); Total Protein 6.5 G/DL (6.4-8.3)
[2020-08-18] MEDS: METOPROLOL TARTRATE 25 MG TABLET PO SCH ×2 (09:23→21:49)
[2020-08-18] MEDS: ISOSORBIDE MONONITRATE 30 MG TABLET PO SCH (09:23)
[2020-08-18] MEDS ORDERED: ALBUTEROL/IPRATROPIUM 3 ML NEB RESP TX SCH (13:30)
[2020-08-18] MEDS ORDERED: methylPREDNISolone SOD SUC 125 MG/2 ML VIAL IV SCH (13:30)
[2020-08-18] MEDS: MYLANTA/LIDO VISC/NYST 180 ML BOTTLE SWISH/SPIT SCH ×3 (14:27→21:49)
[2020-08-18] MEDS: cefTRIAXone 1,000 MG VIAL IM SCH (21:52)
[2020-08-19 06:43] LABS: Calcium 8.6 MG/DL (8.5-10.1); Osmolality,Calculated 298.7 MOS/KG (273-304)
[2020-08-19 07:09] LABS: Basophils % 0.2 % (0.0-0.8); Hematocrit 33.3 VOL% (42.0-52.0); Hemoglobin 11.1 GM/DL (14.0-18.0); Immature Granulocytes % 0.5 %; Immature Granulocytes Absolute 0.02 #; Lymphocytes # 0.7 10*3/uL (1.4-4.0); Lymphocytes % 16.8 % (21.2-54.2); Mean Corpuscular HGB Conc 33.3 GM/DL (32-36); Mean Corpuscular Volume 87.4 FL (87-102); Monocytes % 8.9 % (1.7-12.7); Neutrophils % 73.6 % (38.7-73.9); Platelet Count 45 T/CUMM (130-400); Red Blood Count 3.81 MC/CUMM (3.8-5.5); Red Cell Distribution Width 20.6 % (9.3-17.3); White Blood Count 4.1 T/CUMM (4-12)
[2020-08-19 07:42] LABS: Hypochromasia 1+; Platelet Estimate Decreased
[2020-08-19 09:00] LABS: Albumin 2.1 G/DL (3.4-5.0); Bilirubin,Direct 1.82 MG/DL (0.0-0.20); Bilirubin,Total 2.8 MG/DL (0.2-1.0); Total Protein 6.1 G/DL (6.4-8.3)
[2020-08-19] MEDS: LACTULOSE 20 GM/30 ML UDCUP PO SCH ×2 (09:44→22:28)
[2020-08-19] MEDS: ISOSORBIDE MONONITRATE 30 MG TABLET PO SCH (09:44)
[2020-08-19] MEDS: METOPROLOL TARTRATE 25 MG TABLET PO SCH ×2 (09:44→22:25)
[2020-08-19] MEDS: MYLANTA/LIDO VISC/NYST 180 ML BOTTLE SWISH/SPIT SCH ×4 (09:45→22:25)
[2020-08-19 14:06] LABS: Antinuclear Ab, S 0.7 U
[2020-08-19 14:31] LABS: Smooth Muscle Antibody Negative (Negative)
[2020-08-19] MEDS: cefTRIAXone 1,000 MG VIAL IM SCH (22:28)
[2020-08-20 05:15] LABS: Hematocrit 32.3 VOL% (42.0-52.0); Hemoglobin 10.7 GM/DL (14.0-18.0); Immature Granulocytes % 0.3 %; Immature Granulocytes Absolute 0.01 #; Lymphocytes # 0.7 10*3/uL (1.4-4.0); Lymphocytes % 18.5 % (21.2-54.2); Mean Corpuscular HGB Conc 33.1 GM/DL (32-36); Mean Corpuscular Volume 87.5 FL (87-102); Mean Platelet Volume 11.3 FL (9.6-12.0); Monocytes % 8.2 % (1.7-12.7); Red Blood Count 3.69 MC/CUMM (3.8-5.5); Red Cell Distribution Width 20.6 % (9.3-17.3); White Blood Count 3.8 T/CUMM (4-12)
[2020-08-20 05:16] LABS: Platelet Count 54 T/CUMM (130-400)
[2020-08-20 05:36] LABS: Lymphocytes 13 % (20-55); Platelet Estimate Decreased; Segmented Neutrophils 83 % (50-85); Total Cells Counted 100
[2020-08-20 05:37] LABS: Calcium 8.8 MG/DL (8.5-10.1); Hypochromasia Slight
[2020-08-20 05:38] LABS: Albumin 2.2 G/DL (3.4-5.0); Bilirubin,Direct 1.96 MG/DL (0.0-0.20); Bilirubin,Indirect 1.1 MG/DL (0.0-1.0); Bilirubin,Total 3.1 MG/DL (0.2-1.0); Total Protein 6.4 G/DL (6.4-8.3)
[2020-08-20] MEDS: ISOSORBIDE MONONITRATE 30 MG TABLET PO SCH (09:46)
[2020-08-20] MEDS: METOPROLOL TARTRATE 25 MG TABLET PO SCH ×2 (09:47→21:14)
[2020-08-20] MEDS: LACTULOSE 20 GM/30 ML UDCUP PO SCH ×2 (09:47→21:15)
[2020-08-20] MEDS: MYLANTA/LIDO VISC/NYST 180 ML BOTTLE SWISH/SPIT SCH ×4 (09:53→21:12)
[2020-08-20] MEDS: cefTRIAXone 1,000 MG VIAL IM SCH (21:17)
[2020-08-21 05:56] LABS: Basophils % 0.3 % (0.0-0.8); Hematocrit 28.9 VOL% (42.0-52.0); Hemoglobin 9.8 GM/DL (14.0-18.0); Immature Granulocytes % 0.8 %; Immature Granulocytes Absolute 0.03 #; Lymphocytes # 0.6 10*3/uL (1.4-4.0); Lymphocytes % 16.3 % (21.2-54.2); Mean Corpuscular HGB Conc 33.9 GM/DL (32-36); Mean Corpuscular Volume 88.4 FL (87-102); Mean Platelet Volume 11.3 FL (9.6-12.0); Monocytes % 7.8 % (1.7-12.7); Neutrophils % 74.8 % (38.7-73.9); Red Blood Count 3.27 MC/CUMM (3.8-5.5); Red Cell Distribution Width 20.6 % (9.3-17.3); White Blood Count 3.9 T/CUMM (4-12)
[2020-08-21 05:58] LABS: Platelet Count 69 T/CUMM (130-400)
[2020-08-21 06:09] LABS: Calcium 8.5 MG/DL (8.5-10.1); Osmolality,Calculated 296.8 MOS/KG (273-304)
[2020-08-21 06:15] LABS: Bilirubin,Total 2.6 MG/DL (0.2-1.0); Calcium 8.5 MG/DL (8.5-10.1); Osmolality,Calculated 299.7 MOS/KG (273-304); Total Protein 5.9 G/DL (6.4-8.3)
[2020-08-21 06:25] LABS: Band Neutrophils 1 % (0-10); Hypochromasia 1+; Lymphocytes 13 % (20-55); Microcytosis Slight; Platelet Estimate Decreased; Segmented Neutrophils 83 % (50-85); Total Cells Counted 100
[2020-08-21] MEDS: LACTULOSE 20 GM/30 ML UDCUP PO SCH ×3 (09:18→21:39)
[2020-08-21] MEDS: ISOSORBIDE MONONITRATE 30 MG TABLET PO SCH (09:19)
[2020-08-21] MEDS: METOPROLOL TARTRATE 25 MG TABLET PO SCH ×2 (09:19→21:39)
[2020-08-21] MEDS: MYLANTA/LIDO VISC/NYST 180 ML BOTTLE SWISH/SPIT SCH ×4 (09:35→21:44)
[2020-08-21 16:06] LABS: Bacteria,Urine Occasional /HPF (Few); Bilirubin,Urine Negative (Negative); Blood, Urine Large mg/dL (Negative); Glucose,Urine (UA) Negative (Negative); Hyaline Casts,Urine 1 /LPF (0-3); Ketones,Urine Negative (Negative); Mucus,Urine Occasional /LPF (Occasional); Nitrite,Urine Negative (Negative); Protein,Urine 100 MG/DL; RBC,Urine 163 /HPF (0-4); Squamous Epithelial Cell,Urine Occasional /HPF (0-10); Urine Appearance Slightly Hazy (Clear); Urine Color Amber (Yellow); Urine Specific Gravity 1.014 (1.001-1.035); Urine Urobilinogen < 2.0 EU/DL (0.2-1.0); WBC,Urine 31 /HPF (0-6)
[2020-08-21] MEDS: PHENAZOPYRIDINE 95 MG TABLET PO SCH (18:00)
[2020-08-21] MEDS: ALBUMIN 25% 25 GM in PREMIX 1 EACH IV SCH ×2 (18:04→18:05)
[2020-08-21] MEDS: POTASSIUM CHLORIDE RIDER 20 MEQ in PREMIX 1 EACH IV PRN ×2 (21:39→23:47)
[2020-08-21] MEDS: cefTRIAXone 1,000 MG VIAL IM SCH (21:39)
[2020-08-21] MEDS ORDERED: POTASSIUM CHLORIDE RIDER 10 MEQ in PREMIX 1 EACH IV PRN (23:43)
[2020-08-22] MEDS: ALBUMIN 25% 25 GM in PREMIX 1 EACH IV SCH ×3 (03:50→17:05)
[2020-08-22 06:31] LABS: Basophils % 0.2 % (0.0-0.8); Hematocrit 27.5 VOL% (42.0-52.0); Hemoglobin 9.1 GM/DL (14.0-18.0); Immature Granulocytes % 0.5 %; Immature Granulocytes Absolute 0.02 #; Lymphocytes # 0.9 10*3/uL (1.4-4.0); Lymphocytes % 20.3 % (21.2-54.2); Mean Corpuscular HGB Conc 33.1 GM/DL (32-36); Mean Corpuscular Volume 89.3 FL (87-102); Mean Platelet Volume 10.8 FL (9.6-12.0); Monocytes % 7.6 % (1.7-12.7); Neutrophils % 71.4 % (38.7-73.9); Platelet Count 66 T/CUMM (130-400); Red Blood Count 3.08 MC/CUMM (3.8-5.5); White Blood Count 4.2 T/CUMM (4-12)
[2020-08-22 06:42] LABS: INR 1.2; PT Patient Result 12.8 SECS (9.8-11.9)
[2020-08-22 07:01] LABS: Albumin 2.6 G/DL (3.4-5.0); Bilirubin,Total 2.3 MG/DL (0.2-1.0); Calcium 8.3 MG/DL (8.5-10.1); Osmolality,Calculated 293.8 MOS/KG (273-304); Total Protein 6.1 G/DL (6.4-8.3)
[2020-08-22 07:17] LABS: Platelet Estimate Decreased
[2020-08-22 07:19] LABS: Reactive Lymphocytes Few
[2020-08-22 07:21] LABS: Polychromasia Slight; Target Cells Few
[2020-08-22 07:22] LABS: Schistocytes Few
[2020-08-22] MEDS: LACTULOSE 20 GM/30 ML UDCUP PO SCH ×2 (10:39→21:03)
[2020-08-22] MEDS: METOPROLOL TARTRATE 25 MG TABLET PO SCH ×2 (10:41→21:03)
[2020-08-22] MEDS: PHENAZOPYRIDINE 95 MG TABLET PO SCH ×3 (10:41→16:51)
[2020-08-22] MEDS: ISOSORBIDE MONONITRATE 30 MG TABLET PO SCH (10:41)
[2020-08-22] MEDS: MYLANTA/LIDO VISC/NYST 180 ML BOTTLE SWISH/SPIT SCH ×4 (10:41→21:03)
[2020-08-22] MEDS ORDERED: FUROSEMIDE 20 MG TABLET PO PRN (13:03)
[2020-08-22] MEDS: cefTRIAXone 1,000 MG VIAL IM SCH ×2 (21:04→21:10)
[2020-08-23] MEDS: ALBUMIN 25% 25 GM in PREMIX 1 EACH IV SCH ×3 (01:24→17:02)
[2020-08-23] MEDS: MYLANTA/LIDO VISC/NYST 180 ML BOTTLE SWISH/SPIT SCH ×4 (08:32→23:45)
[2020-08-23] MEDS: METOPROLOL TARTRATE 25 MG TABLET PO SCH ×2 (08:43→23:45)
[2020-08-23] MEDS: LACTULOSE 20 GM/30 ML UDCUP PO SCH ×2 (08:43→23:45)
[2020-08-23] MEDS: ISOSORBIDE MONONITRATE 30 MG TABLET PO SCH (08:43)
[2020-08-23] MEDS: PHENAZOPYRIDINE 95 MG TABLET PO SCH ×3 (08:43→16:42)
[2020-08-23 11:54] LABS: Basophils % 0.2 % (0.0-0.8); Hematocrit 31.7 VOL% (42.0-52.0); Hemoglobin 10.4 GM/DL (14.0-18.0); Immature Granulocytes % 0.4 %; Immature Granulocytes Absolute 0.02 #; Lymphocytes # 0.6 10*3/uL (1.4-4.0); Lymphocytes % 12.2 % (21.2-54.2); Mean Corpuscular HGB Conc 32.8 GM/DL (32-36); Mean Corpuscular Volume 90.6 FL (87-102); Mean Platelet Volume 11.6 FL (9.6-12.0); Monocytes % 7.4 % (1.7-12.7); Neutrophils % 79.8 % (38.7-73.9); Platelet Count 82 T/CUMM (130-400); Red Cell Distribution Width 20.9 % (9.3-17.3); White Blood Count 4.8 T/CUMM (4-12)
[2020-08-23 12:23] LABS: Albumin 3.5 G/DL (3.4-5.0); Calcium 9.3 MG/DL (8.5-10.1); Osmolality,Calculated 294.2 MOS/KG (273-304); Total Protein 6.9 G/DL (6.4-8.3)
[2020-08-23 12:29] LABS: Platelet Estimate Decreased
[2020-08-23 12:30] LABS: Anisocytosis 1+; Hypochromasia Slight; Macrocytosis Slight; Poikilocytosis Slight
[2020-08-23] MEDS: cefTRIAXone 1,000 MG VIAL IM SCH (23:45)
[2020-08-24] MEDS: ALBUMIN 25% 25 GM in PREMIX 1 EACH IV SCH ×3 (04:07→17:08)
[2020-08-24 05:49] LABS: Basophils # 0.1 10*3/uL (0.0-0.2); Basophils % 1.1 % (0.0-0.8); Hematocrit 29.3 VOL% (42.0-52.0); Hemoglobin 9.9 GM/DL (14.0-18.0); Immature Granulocytes % 0.2 %; Immature Granulocytes Absolute 0.01 #; Lymphocytes # 0.8 10*3/uL (1.4-4.0); Lymphocytes % 17.4 % (21.2-54.2); Mean Corpuscular HGB Conc 33.8 GM/DL (32-36); Mean Corpuscular Volume 87.7 FL (87-102); Mean Platelet Volume 11.3 FL (9.6-12.0); Monocytes % 7.2 % (1.7-12.7); Neutrophils % 74.1 % (38.7-73.9); Platelet Count 85 T/CUMM (130-400); Red Blood Count 3.34 MC/CUMM (3.8-5.5); Red Cell Distribution Width 20.3 % (9.3-17.3); White Blood Count 4.7 T/CUMM (4-12)
[2020-08-24 06:03] LABS: Albumin 3.5 G/DL (3.4-5.0); Bilirubin,Total 2.6 MG/DL (0.2-1.0); Calcium 9.3 MG/DL (8.5-10.1); Osmolality,Calculated 293.1 MOS/KG (273-304); Total Protein 6.9 G/DL (6.4-8.3)
[2020-08-24 06:41] LABS: Platelet Estimate Decreased
[2020-08-24 06:42] LABS: Anisocytosis 1+; Macrocytosis 1+; Tear Drop Cells Few
[2020-08-24] MEDS: LACTULOSE 20 GM/30 ML UDCUP PO SCH ×2 (09:04→20:53)
[2020-08-24] MEDS: MYLANTA/LIDO VISC/NYST 180 ML BOTTLE SWISH/SPIT SCH ×4 (09:04→20:53)
[2020-08-24] MEDS: PHENAZOPYRIDINE 95 MG TABLET PO SCH ×3 (09:05→16:52)
[2020-08-24] MEDS: METOPROLOL TARTRATE 25 MG TABLET PO SCH ×2 (09:06→20:53)
[2020-08-24] MEDS: ISOSORBIDE MONONITRATE 30 MG TABLET PO SCH (09:08)
[2020-08-24] MEDS: cefTRIAXone 1,000 MG VIAL IM SCH (20:54)
[2020-08-25] MEDS: ALBUMIN 25% 25 GM in PREMIX 1 EACH IV SCH ×2 (01:40→10:20)
[2020-08-25 07:49] LABS: Basophils % 0.2 % (0.0-0.8); Hematocrit 30.4 VOL% (42.0-52.0); Hemoglobin 10.2 GM/DL (14.0-18.0); Immature Granulocytes % 0.4 %; Immature Granulocytes Absolute 0.02 #; Lymphocytes # 0.8 10*3/uL (1.4-4.0); Lymphocytes % 16.4 % (21.2-54.2); Mean Corpuscular HGB Conc 33.6 GM/DL (32-36); Mean Corpuscular Volume 89.4 FL (87-102); Mean Platelet Volume 11.5 FL (9.6-12.0); Monocytes % 7.4 % (1.7-12.7); Neutrophils % 75.6 % (38.7-73.9); Platelet Count 85 T/CUMM (130-400); Red Cell Distribution Width 20.3 % (9.3-17.3); White Blood Count 4.9 T/CUMM (4-12)
[2020-08-25 08:04] LABS: Albumin 3.8 G/DL (3.4-5.0); Bilirubin,Total 2.8 MG/DL (0.2-1.0); Calcium 9.5 MG/DL (8.5-10.1); Osmolality,Calculated 289.5 MOS/KG (273-304)
[2020-08-25 08:17] LABS: Hypochromasia 1+; Platelet Estimate Decreased
[2020-08-25 08:18] LABS: Macrocytosis Slight
[2020-08-25] MEDS: METOPROLOL TARTRATE 25 MG TABLET PO SCH ×2 (09:52→20:43)
[2020-08-25] MEDS: ISOSORBIDE MONONITRATE 30 MG TABLET PO SCH (09:52)
[2020-08-25] MEDS: PHENAZOPYRIDINE 95 MG TABLET PO SCH ×3 (09:53→20:33)
[2020-08-25] MEDS: LACTULOSE 20 GM/30 ML UDCUP PO SCH ×2 (09:53→20:43)
[2020-08-25] MEDS: MYLANTA/LIDO VISC/NYST 180 ML BOTTLE SWISH/SPIT SCH ×4 (09:54→20:43)
[2020-08-26] MEDS: LACTULOSE 20 GM/30 ML UDCUP PO SCH ×2 (09:43→21:16)
[2020-08-26] MEDS: MYLANTA/LIDO VISC/NYST 180 ML BOTTLE SWISH/SPIT SCH ×4 (09:43→21:18)
[2020-08-26] MEDS: ISOSORBIDE MONONITRATE 30 MG TABLET PO SCH (09:43)
[2020-08-26] MEDS: PHENAZOPYRIDINE 95 MG TABLET PO SCH ×3 (09:43→18:35)
[2020-08-26] MEDS: METOPROLOL TARTRATE 25 MG TABLET PO SCH ×2 (09:43→21:17)
[2020-08-26 12:18] LABS: Basophils % 0.2 % (0.0-0.8); Hematocrit 31.9 VOL% (42.0-52.0); Hemoglobin 10.7 GM/DL (14.0-18.0); Immature Granulocytes % 0.4 %; Immature Granulocytes Absolute 0.02 #; Lymphocytes # 0.8 10*3/uL (1.4-4.0); Lymphocytes % 15.3 % (21.2-54.2); Mean Corpuscular HGB Conc 33.5 GM/DL (32-36); Mean Corpuscular Volume 89.1 FL (87-102); Mean Platelet Volume 11.3 FL (9.6-12.0); Monocytes % 8.3 % (1.7-12.7); Neutrophils % 75.8 % (38.7-73.9); Platelet Count 115 T/CUMM (130-400); Red Blood Count 3.58 MC/CUMM (3.8-5.5); Red Cell Distribution Width 20.1 % (9.3-17.3); White Blood Count 5.3 T/CUMM (4-12)
[2020-08-26 12:41] LABS: Albumin 3.8 G/DL (3.4-5.0); Calcium 9.6 MG/DL (8.5-10.1); Osmolality,Calculated 291.5 MOS/KG (273-304); Total Protein 7.2 G/DL (6.4-8.3)
[2020-08-27] MEDS ORDERED: HALOPERIDOL 5 MG/ML AMP IM PRN (02:34)
[2020-08-27] MEDS ORDERED: HALOPERIDOL 5 MG/ML AMP IV PRN (03:00)
[2020-08-27 07:39] LABS: Basophils % 0.2 % (0.0-0.8); Hematocrit 27.9 VOL% (42.0-52.0); Hemoglobin 9.4 GM/DL (14.0-18.0); Immature Granulocytes % 0.5 %; Immature Granulocytes Absolute 0.02 #; Lymphocytes # 0.6 10*3/uL (1.4-4.0); Lymphocytes % 14.1 % (21.2-54.2); Mean Corpuscular HGB Conc 33.7 GM/DL (32-36); Mean Platelet Volume 10.4 FL (9.6-12.0); Monocytes % 7.3 % (1.7-12.7); Neutrophils % 77.9 % (38.7-73.9); Red Blood Count 3.17 MC/CUMM (3.8-5.5); White Blood Count 4.3 T/CUMM (4-12)
[2020-08-27 07:40] LABS: Platelet Count 96 T/CUMM (130-400)
[2020-08-27 07:56] LABS: Hypochromasia 1+; Platelet Estimate Decreased; Target Cells Few
[2020-08-27 07:58] LABS: Albumin 3.3 G/DL (3.4-5.0); Bilirubin,Total 2.9 MG/DL (0.2-1.0); Calcium 9.4 MG/DL (8.5-10.1); Osmolality,Calculated 298.1 MOS/KG (273-304); Total Protein 6.3 G/DL (6.4-8.3)
[2020-08-27] MEDS: MYLANTA/LIDO VISC/NYST 180 ML BOTTLE SWISH/SPIT SCH ×2 (09:51→12:17)
[2020-08-27] MEDS: LACTULOSE 20 GM/30 ML UDCUP PO SCH (09:52)
[2020-08-27] MEDS: PHENAZOPYRIDINE 95 MG TABLET PO SCH ×2 (09:52→13:33)
[2020-08-27] MEDS: ISOSORBIDE MONONITRATE 30 MG TABLET PO SCH (09:52)
[2020-08-27] MEDS: METOPROLOL TARTRATE 25 MG TABLET PO SCH (09:52)
[2020-08-27 12:12] VITALS: BP 145/79
== END 2020-08-27 15:21 | disposition home health service (06) | DRG 291 ==
LOC: EDUNIT# → EDBD → N.ED 09:12 → SUATTDRO 11:21 → N.EDINP 11:21 → N.ICU 12:50 → N.TELEN 08-13 19:20
PROVIDERS: ADMIT Family Medicine; ATTEND Family Medicine